=== PATIENT | male | born 1985 | race Caucasian/White ===

== ENCOUNTER 2016-07-05 12:30 | Inpatient (IN) | payer OTHER ==
[2016-07-05 14:33] VITALS: BMI 27.6
--- NOTE | 2016-07-05 15:50 | HP ---
CIWA Score - CIWA Score Nausea/Vomitin Muscle Tremors: 3 Anxiety: 3 Agitation: 2 Paroxysmal Sweats: 3 Orientation: 0-Oriented Tacttile Disturbances: 2-Mild Itch/Numbness/Burn Auditory Disturbances: 0-None Visual Disturbances: 0-None Headache: 0-None Present CIWA-Ar Total Score: 16 Admission ROS BHS - HPI Chief Complaint: I need to stop drinking and i can't do it by myself . Allergies/Adverse Reactions: Allergies Allergy/AdvReac Type Severity Reaction Status Date / Time mushroom Allergy Severe Swelling Verified 07/05/16 15:22 amoxicillin AdvReac abdominal Verified 07/05/16 15:22 pain History of Present Illness: 30 y/o m pt with a h/o chronic alcoholism seeking detox. Exam Limitations: No Limitations - Ebola screening Have you traveled outside of the country in the last 21 days: No Have you had contact with anyone from an Ebola affected area: No Have you been sick,other than usual withdrawal symptoms: No Do you have a fever: No - Review of Systems Constitutional: Malaise, Night Sweats, Changes in sleep EENT: reports: Blurred Vision, Nose Congestion Respiratory: reports: No Symptoms reported Cardiac: reports: Lightheadedness GI: reports: No Symptoms Reported, Nausea : reports: No Symptoms Reported Musculoskeletal: reports: Muscle Pain Integumentary: reports: No Symptoms Reported Neuro: reports: Tremors Endocrine: reports: No Symptoms Reported Hematology: reports: No Symptoms Reported Psychiatric: reports: Agitated, Anxious Other Systems: Reviewed and Negative Patient History - Patient Medical History Hx Anemia: No Hx Asthma: No Hx Chronic Obstructive Pulmonary Disease (COPD): No Hx Cancer: No Hx Cardiac Disorders: No Hx Congestive Heart Failure: No Hx Hypertension: No Hx Hypercholesterolemia: No Hx Pacemaker: No HX Cerebrovascular Accident: No Hx Seizures: No Hx Diabetes: No Hx Gastrointestinal Disorders: Yes (acid reflux, celiac disease ) Hx Liver Disease: No Hx Genitourinary Disorders: No Hx Sexually Transmitted Disorders: Yes (syphilis) Hx Renal Disease (ESRD): No Hx Thyroid Disease: No Hx Human Immunodeficiency Virus (HIV): No Hx Hepatitis C: No Hx Depression: No Hx Suicide Attempt: No Hx Bipolar Disorder: No Hx Schizophrenia: No Other Medical History: insomnia , h/o DT, visual halluccint[employer] 2013 admitted at [facility] - Patient Surgical History Past Surgical History: Yes Hx Neurologic Surgery: No Hx Cataract Extraction: No Hx Cardiac Surgery: No Hx Lung Surgery: No Hx Breast Surgery: No Hx Breast Biopsy: No Hx Abdominal Surgery: No Hx Appendectomy: No Hx Cholecystectomy: No Hx Genitourinary Surgery: No Hx Section: No Hx Orthopedic Surgery: Yes (dislocation, left wrist at age 20) Anesthesia Reaction: No - PPD History Previous Implant?: Yes Documented Results: Negative w/o proof Implanted On Prior [facility] Admission?: No PPD to be Administered?: Yes - Reproductive History Patient is a Female of Child Bearing Age (11 -55 yrs old): No - Smoking Cessation Smoking history: Never smoked Have you smoked in the past 12 months: No Aproximately how many cigarettes per day: 0 Cigars Per Day: 0 Hx Chewing Tobacco Use: No Initiated information on smoking cessation: No 'Breaking Loose' booklet given: 07/05/16 - Substance & Tx. History Hx Alcohol Use: Yes Hx Substance Use: No Substance Use Type: Alcohol Hx Substance Use Treatment: Yes ([facility] ) - Substances Abused Alcohol-vodka Route: Oral Frequency: Daily Amount used: 1-2 liters/d Age of first use: 19 Date of Last Use: 07/05/16 Family Disease History - Family Disease History Family Disease History: Diabetes: Father, Mother Admission Physical Exam S - Vital Signs Vital Signs: Vital Signs - 24 hr 07/05/16 14:29 Temperature 96.7 F L Pulse Rate 104 H Respiratory 18 Rate Blood Pressure 134/77 - Physical General Appearance: Yes: Appropriately Dressed, Tremorous, Irritable, Anxious HEENTM: Yes: EOMI, Hearing grossly Normal, Normocephalic, Normal Voice, REYNOLD Respiratory: Yes: Chest Non-Tender, Lungs Clear, Normal Breath Sounds, No Respiratory Distress Neck: Yes: Supple, Trachea in good position Breast: Yes: Within Normal Limits Cardiology: Yes: Regular Rhythm, Regular Rate, S1, S2 Abdominal: Yes: Non Tender, Flat, Soft, Increased Bowel Sounds Genitourinary: Yes: Frequency Back: Yes: Decreased Range of Motion Musculoskeletal: Yes: Other (well healed left wrist scar) Extremities: Yes: Tremors Neurological: Yes: night cleaner II-XII NML intact, Fully Oriented, Alert, Motor Strength 5/5, Normal Response Integumentary: Yes: Moist Lymphatic: Yes: Within Normal Limits - Diagnostic (1) Chronic alcoholism Current Visit: Yes Status: Chronic (2) Celiac disease Current Visit: Yes Status: Chronic (3) Syphilis Current Visit: Yes Status: Acute (4) Insomnia Current Visit: Yes Status: Chronic Qualifiers: Insomnia type: unspecified Qualified Code(s): G47.00 - Insomnia, unspecified Cleared for Admission [facility] - Detox or Rehab [facility] Level of Care: Medically Managed Detox Regimen/Protocol: Librium S Breath Alcohol Content Breath Alcohol Content: 0.072 Urine Drug Screen - Results Drug Screen Negative: No Urine Drug Screen Results: BZO-Benzodiazepines
[2016-07-05] MEDS ORDERED: guaiFENesin/D-METHORPHAN HB 10 ML UNIT-DOSE CUPS PO PRN (16:10)
[2016-07-05] MEDS ORDERED: hydrOXYzine PAMOATE 25 MG CAPSULE (FP) PO PRN (16:10)
[2016-07-05] MEDS ORDERED: MAGNESIUM CITRATE 300 ML BOTTLE PO PRN (16:10)
[2016-07-05] MEDS ORDERED: ACETAMINOPHEN 325 MG TABLET (FP) PO PRN (16:10)
[2016-07-05] MEDS ORDERED: MAG HYDROX/AL HYDROX/SIMETH 30 ML UNIT-DOSE CUP PO PRN (16:10)
[2016-07-05] MEDS ORDERED: P-EPHED 60MG/TRIPROLIDI 2.5MG TABLET PO PRN (16:10)
[2016-07-05] MEDS ORDERED: MENTHOL/PHENOL 1 EACH UD MM PRN (16:10)
[2016-07-05] MEDS ORDERED: MAGNESIUM HYDROX 2400MG/30ML ORAL SUSPENSION 30 ML CUP PO PRN (16:10)
[2016-07-05] MEDS: chlordiazePOXIDE HCL 25 MG CAPSULE PO SCH ×2 (17:13→22:22)
[2016-07-05] MEDS: DOXYCYCLINE HYCLATE 100 MG TABLET PO SCH (17:13)
[2016-07-05] MEDS: chlordiazePOXIDE HCL 25 MG CAPSULE PO PRN (20:20)
[2016-07-05] MEDS: THIAMINE HCL 100 MG TABLET (FP) PO SCH (22:22)
[2016-07-05] MEDS: diphenhydrAMINE HCL 50 MG CAPSULE PO PRN (22:23)
[2016-07-05] MEDS: IBUPROFEN 400 MG TABLET (FP) PO PRN (22:25)
[2016-07-05] MEDS: LOPERAMIDE HCL 2 MG CAPSULE PO PRN (23:06)
[2016-07-06] MEDS: chlordiazePOXIDE HCL 25 MG CAPSULE PO PRN (00:50)
[2016-07-06] MEDS: diphenhydrAMINE HCL 50 MG CAPSULE PO PRN (00:50)
[2016-07-06] MEDS: chlordiazePOXIDE HCL 25 MG CAPSULE PO SCH ×4 (05:49→23:02)
[2016-07-06] MEDS: LOPERAMIDE HCL 2 MG CAPSULE PO PRN (05:50)
[2016-07-06 10:08] LABS: MCH 29.6 pg (25.7-33.7); MCHC 32.9 g/dl (32.0-35.9); PLATELET COUNT 166 K/MM3 (134-434); RDW 13.3 % (11.9-15.9); WHITE BLOOD COUNT 4.4 K/mm3 (4.0-10.0)
--- NOTE | 2016-07-06 10:15 | CONSULT ---
[facility] Psychiatric Consult - Data Date of interview: 07/06/16 Admission source: [facility] Identifying data: This is 30 years old male with no psychiatric hospitalization history intoxciated with: Alcohol Substance Abuse History: - Smoking Cessation. Smoking history: Never smoked. Have you smoked in the past 12 months: No. Aproximately how many cigarettes per day: 0. Cigars Per Day: 0. Hx Chewing Tobacco Use: No. Initiated information on smoking cessation: No. 'Breaking Loose' booklet given: . - Substance & Tx. History. Hx Alcohol Use: Yes. Hx Substance Use: No. Substance Use Type: Alcohol. Hx Substance Use Treatment: Yes ([facility] ). - Substances Abused. Alcohol-vodka. Route: Oral. Frequency: Daily. Amount used: 1-2 liters/d. Age of first use: 19. Date of Last Use: 07/05/16 Medical History: Syphilis history, Celiac disease, Psychiatric History: Patient reports history of depression and anxiety, severe insomni, reports taking prior to admission: Ambien 10mg po qhs Physical/Sexual Abuse/Trauma History: Denies Additional Comment: Ambien 10mg po qhs Mental Status Exam - Mental Status Exam Alert and Oriented to: Person Cognitive Function: Fair Patient Appearance: Unkempt Mood: Sad Affect: Flat Patient Behavior: Sedated Speech Pattern: Delayed Voice Loudness: Mildly Soft/Quiet Thought Process: Circumstantial Thought Disorder: Being Controlled Hallucinations: Denies Suicidal Ideation: Denies Homicidal Ideation: Denies Insight/Judgement: Fair Sleep: Difficulty falling asleep Appetite: Weight loss Muscle strength/Tone: Mild Hypotonicity Gait/Station: Shuffling Additional Comments: Ambien 10mg po qhs Psychiatric Findings - Problem List ([place] 1, 2,3) (1) Chronic alcoholism Current Visit: Yes Status: Chronic (2) Alcohol induced insomnia Current Visit: Yes Status: Acute (3) Alcohol-induced anxiety disorder Current Visit: Yes Status: Acute (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
[2016-07-06 10:18] LABS: ALBUMIN 4.2 g/dl (3.4-5.0); ALK PHOS 105 U/L (45-117); ANION GAP 10 (8-16); BILIRUBIN,TOTAL 0.2 mg/dL (0.2-1.0); CALCIUM 8.7 mg/dL (8.5-10.1); CO2 28 mmol/L (21-32); COCKROFT - GAULT 130.47; CREATININE 0.9 mg/dL (0.7-1.3); GLUCOSE,RANDOM 83 mg/dL (74-106); SGOT/AST 82 U/L (15-37); SGPT/ALT 118 U/L (12-78); TOT PROT 7.4 g/dl (6.4-8.2)
[2016-07-06] MEDS: PRENATAL VITAMINS W/ FOLIC ACID TABLET (FP) PO SCH (10:30)
[2016-07-06] MEDS: DOXYCYCLINE HYCLATE 100 MG TABLET PO SCH ×2 (10:30→17:46)
--- NOTE | 2016-07-06 10:53 | PN ---
[facility] CIWA - CIWA Score Nausea/Vomitin (DIARRHEA) Muscle Tremors: 4-Moderate,w/Arms Extend Anxiety: 4-Mod. Anxious/Guarded Agitation: 4-Moderately Restless Paroxysmal Sweats: 1-Minimal Palms Moist Orientation: 0-Oriented Tacttile Disturbances: 3-Moderate Itch/Numb/Burn Auditory Disturbances: 0-None Visual Disturbances: 0-None Headache: 0-None Present CIWA-Ar Total Score: 19 BHS Progress Note (SOAP) Subjective: ANXIETY,SWEATS,TREMORS, DIARRHEA,FATIGUE. Objective: 07/06/16 10:52 Vital Signs Temperature 96.8 F L 07/06/16 09:28 Pulse Rate 75 07/06/16 09:28 Respiratory Rate 18 07/06/16 09:28 Blood Pressure 115/77 07/06/16 09:28 O2 Sat by Pulse Oximetry (%) Laboratory Last Values WBC 4.4 K/mm3 (4.0-10.0) 07/06/16 06:00 RBC 4.72 M/mm3 (4.00-5.60) 07/06/16 06:00 Hgb 14.0 GM/dL (11.7-16.9) 07/06/16 06:00 Hct 42.5 % (35.4-49) 07/06/16 06:00 MCV 90.0 fl (80-96) 07/06/16 06:00 MCHC 32.9 g/dl (32.0-35.9) 07/06/16 06:00 RDW 13.3 % (11.9-15.9) 07/06/16 06:00 Plt Count 166 K/MM3 (134-434) 07/06/16 06:00 MPV 10.0 fl (7.5-11.1) 07/06/16 06:00 Sodium 140 mmol/L (136-145) 07/06/16 06:00 Potassium 4.5 mmol/L (3.5-5.1) 07/06/16 06:00 Chloride 102 mmol/L (98-107) 07/06/16 06:00 Carbon Dioxide 28 mmol/L (21-32) 07/06/16 06:00 Anion Gap 10 (8-16) 07/06/16 06:00 BUN 13 mg/dL (7-18) 07/06/16 06:00 Creatinine 0.9 mg/dL (0.7-1.3) 07/06/16 06:00 Creat Clearance w eGFR > 60 (>60) 07/06/16 06:00 Random Glucose 83 mg/dL (74-106) 07/06/16 06:00 Calcium 8.7 mg/dL (8.5-10.1) 07/06/16 06:00 Total Bilirubin 0.2 mg/dL (0.2-1.0) 07/06/16 06:00 AST 82 U/L (15-37) H 07/06/16 06:00 ALT 118 U/L (12-78) H 07/06/16 06:00 Alkaline Phosphatase 105 U/L (45-117) 07/06/16 06:00 Total Protein 7.4 g/dl (6.4-8.2) 07/06/16 06:00 Albumin 4.2 g/dl (3.4-5.0) 07/06/16 06:00 Assessment: 07/06/16 10:52 WITHDRAWAL SX Plan: CONTINUE DETOX
--- NOTE | 2016-07-06 16:36 | EKG ---
Test Reason : Blood Pressure : / mmHG Vent. Rate : 100 BPM Atrial Rate : 100 BPM P-R Int : 134 ms QRS Dur : 086 ms QT Int : 346 ms P-R-T Axes : 036 015 014 degrees QTc Int : 446 ms NORMAL SINUS RHYTHM NORMAL ECG NO PREVIOUS ECGS AVAILABLE Confirmed by MAGGY OSULLIVAN MD ([id number]) on 07/06/2016 4:36:26 PM Referred By: Confirmed By:MAGGY OSULLIVAN MD
[2016-07-06 17:46] LABS: URINE APPEARANCE CLEAR; URINE BILIRUBIN NEGATIVE (NEGATIVE); URINE BLOOD NEGATIVE (NEGATIVE); URINE COLOR COLORLESS; URINE GLUCOSE (UA) NEGATIVE (NEGATIVE); URINE KETONE NEGATIVE (NEGATIVE); URINE LEUK ESTERASE NEGATIVE (NEGATIVE); URINE NITRITE NEGATIVE (NEGATIVE); URINE PROTEIN NEGATIVE (NEGATIVE); URINE UROBILINOGEN NEGATIVE E.U./dl (0.2-1.0)
[2016-07-06] MEDS ORDERED: ZOLPIDEM TARTRATE 10 MG TABLET (PARK CARE ONLY) PO PRN (22:00)
[2016-07-06] MEDS: THIAMINE HCL 100 MG TABLET (FP) PO SCH (23:02)
[2016-07-06] MEDS: IBUPROFEN 400 MG TABLET (FP) PO PRN (23:04)
[2016-07-07] MEDS: chlordiazePOXIDE HCL 25 MG CAPSULE PO SCH ×2 (05:27→10:29)
[2016-07-07] MEDS: PRENATAL VITAMINS W/ FOLIC ACID TABLET (FP) PO SCH (10:29)
[2016-07-07] MEDS: DOXYCYCLINE HYCLATE 100 MG TABLET PO SCH (10:29)
[2016-07-07 10:57] VITALS: BP 130/91; PULSE 71; TEMP 98.6
--- NOTE | 2016-07-07 11:40 | PN ---
[facility] CIWA - CIWA Score Nausea/Vomitin-No Nausea/No Vomiting Muscle Tremors: 4-Moderate,w/Arms Extend Anxiety: 4-Mod. Anxious/Guarded Agitation: 4-Moderately Restless Paroxysmal Sweats: 1-Minimal Palms Moist Orientation: 0-Oriented Tacttile Disturbances: 3-Moderate Itch/Numb/Burn Auditory Disturbances: 0-None Visual Disturbances: 0-None Headache: 0-None Present CIWA-Ar Total Score: 16 S Progress Note (SOAP) Subjective: ANXIETY,IRRITABILITY, INTERMITTENT SLEEP. C/O ANAL DISCOMFORT AND CHRONIC HX OF BLEEDING WHEN WIPE AFTER BM. ON OINTMENT BY HIS PMD PER PATIENT. PT ADMITS HE DID NOT MENTION SX ON ADMISSION. Objective: 07/07/16 11:39 Vital Signs Temperature 98.6 F 07/07/16 10:56 Pulse Rate 71 07/07/16 10:56 Respiratory Rate 18 07/07/16 10:56 Blood Pressure 130/91 07/07/16 10:56 O2 Sat by Pulse Oximetry (%) Laboratory Last Values WBC 4.4 K/mm3 (4.0-10.0) 07/06/16 06:00 RBC 4.72 M/mm3 (4.00-5.60) 07/06/16 06:00 Hgb 14.0 GM/dL (11.7-16.9) 07/06/16 06:00 Hct 42.5 % (35.4-49) 07/06/16 06:00 MCV 90.0 fl (80-96) 07/06/16 06:00 MCHC 32.9 g/dl (32.0-35.9) 07/06/16 06:00 RDW 13.3 % (11.9-15.9) 07/06/16 06:00 Plt Count 166 K/MM3 (134-434) 07/06/16 06:00 MPV 10.0 fl (7.5-11.1) 07/06/16 06:00 Sodium 140 mmol/L (136-145) 07/06/16 06:00 Potassium 4.5 mmol/L (3.5-5.1) 07/06/16 06:00 Chloride 102 mmol/L (98-107) 07/06/16 06:00 Carbon Dioxide 28 mmol/L (21-32) 07/06/16 06:00 Anion Gap 10 (8-16) 07/06/16 06:00 BUN 13 mg/dL (7-18) 07/06/16 06:00 Creatinine 0.9 mg/dL (0.7-1.3) 07/06/16 06:00 Creat Clearance w eGFR > 60 (>60) 07/06/16 06:00 Random Glucose 83 mg/dL (74-106) 07/06/16 06:00 Calcium 8.7 mg/dL (8.5-10.1) 07/06/16 06:00 Total Bilirubin 0.2 mg/dL (0.2-1.0) 07/06/16 06:00 AST 82 U/L (15-37) H 07/06/16 06:00 ALT 118 U/L (12-78) H 07/06/16 06:00 Alkaline Phosphatase 105 U/L (45-117) 07/06/16 06:00 Total Protein 7.4 g/dl (6.4-8.2) 07/06/16 06:00 Albumin 4.2 g/dl (3.4-5.0) 07/06/16 06:00 Urine Color Colorless 07/06/16 17:31 Urine Appearance Clear 07/06/16 17:31 Urine pH 8.0 (5.0-8.0) 07/06/16 17:31 Ur Specific [place] 1.015 (1.005-1.025) 07/06/16 17:31 Urine Protein Negative (NEGATIVE) 07/06/16 17:31 Urine Glucose (UA) Negative (NEGATIVE) 07/06/16 17:31 Urine Ketones Negative (NEGATIVE) 07/06/16 17:31 Urine Blood Negative (NEGATIVE) 07/06/16 17:31 Urine Nitrite Negative (NEGATIVE) 07/06/16 17:31 Urine Bilirubin Negative (NEGATIVE) 07/06/16 17:31 Urine Urobilinogen Negative E.U./dl (0.2-1.0) 07/06/16 17:31 Ur Leukocyte Esterase Negative (NEGATIVE) 07/06/16 17:31 RPR Titer Reactive 1:2 (NONREACTIVE) H 07/06/16 06:00 T.pallidum Ab (MHA) Reactive (NONREACTIVE) 07/06/16 06:00 LABS NOTED PT HAS A HX OF SYPHILIS AND BEING TREATED WITH DOXYCYCLINE WHILE AT [facility]. ALSO STATES PREVIOUS ANAL SX FOR REMOVAL OF LESIONS. Assessment: 07/07/16 11:39 WITHDRAWAL SX Plan: CONTINUE DETOX [facility] OINTMENT DIRECTED
[2016-07-07] MEDS ORDERED: HYDROCORTISONE 2.5% TOPICAL CREAM 30 GM TUBE TP SCH (13:15)
--- NOTE | 2016-07-07 14:43 | DS ---
[facility] Detox Discharge Summary Admission Date: 07/05/16 Discharge Date: 07/07/16 - History Present History: Alcohol Dependence Additional Comments: PT DECLINED TO COMPLETE DETOX STATING HE DOES NOT NEED ANYMORE LIBRIUM. AND THAT HE FEELS FINE. ALERT O X 3. NAD. PT HAS PRIMARY CARE IN [place] AND PT INSTRUCTED TO F/U WITH HIS PMD FOR HIS COMORBID CONDITIONS. Pertinent Past History: CELIAC DISEASE ACUTE SYPHILIS TREATMENT - Physical Exam Results Vital Signs: Vital Signs Temperature 98.6 F 07/07/16 10:56 Pulse Rate 71 07/07/16 10:56 Respiratory Rate 18 07/07/16 10:56 Blood Pressure 130/91 07/07/16 10:56 O2 Sat by Pulse Oximetry (%) Pertinent Admission Physical Exam Findings: WITHDRAWAL SX - Treatment Hospital Course: Discharged Condition Good Patient has Accepted a Rehab Referral to: REFUSED - Medication Discharge Medications: Ambulatory Orders Zolpidem Tartrate [Ambien] 10 mg PO HS 07/05/16 Zolpidem Tartrate [Ambien] 10 mg PO HS #14 tablet MDD 10 07/06/16 Doxycycline Hyclate [Vibramycin -] 100 mg PO BID #14 cap 07/07/16 - Diagnosis (1) Alcohol induced insomnia Status: Acute (2) Syphilis Status: Acute (3) Celiac disease Status: Chronic (4) Alcohol dependence with uncomplicated withdrawal Status: Acute (5) Alcohol-induced anxiety disorder Status: Acute (6) 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
[2016-07-07] MEDS ORDERED: chlordiazePOXIDE 5 MG CAPSULE PO SCH (17:00)
[2016-07-07] MEDS ORDERED: DOXYCYCLINE HYCLATE 100 MG TABLET PO SCH (18:00)
[2016-07-08] MEDS ORDERED: chlordiazePOXIDE HCL 10 MG CAPSULE PO SCH (17:00)
== END 2016-07-07 14:24 | disposition left against medical advice (07) | DRG 770 ==
LOC: YASAS 12:30 → Y3N 15:52
PROVIDERS: ADMIT Internal Medicine; ATTEND Internal Medicine
PROC: HZ2ZZZZ Detoxification Services for Substance Abuse Treatment (ICD-10-PCS; principal; 2016-07-07)
DX: F10.230 Alcohol dependence with withdrawal, uncomplicated (principal); F10.24 Alcohol dependence with alcohol-induced mood disorder; F10.282 Alcohol dependence with alcohol-induced sleep disorder; G47.00 Insomnia, unspecified; K21.9 Gastro-esophageal reflux disease without esophagitis; K90.0 Celiac disease; Z20.2 Contact with and (suspected) exposure to infections with a predominantly sexual mode of transmission
CPT/HCPCS: 36415; 80053; 81003; 85027; 86593; 86780; 93005; 93010

== ENCOUNTER 2017-04-29 14:22 | Inpatient (IN) | payer OTHER ==
[2017-04-29 15:00] VITALS: BMI 28.7
--- NOTE | 2017-04-29 17:11 | HP ---
CIWA Score - CIWA Score Nausea/Vomitin Muscle Tremors: 4-Moderate,w/Arms Extend Anxiety: 3 Agitation: 3 Paroxysmal Sweats: 3 Orientation: 1-Uncertain about Date Tacttile Disturbances: 0-None Auditory Disturbances: 0-None Visual Disturbances: 0-None Headache: 1-Very Mild CIWA-Ar Total Score: 18 Admission ROS BHS - HPI Chief Complaint: "They didn't have detox at the hospital I was at" Allergies/Adverse Reactions: Allergies Allergy/AdvReac Type Severity Reaction Status Date / Time mushroom Allergy Severe Swelling Verified 04/29/17 15:31 amoxicillin AdvReac abdominal Verified 04/29/17 15:31 pain History of Present Illness: 31 y/o male with about 12 year history of alcohol intoxification presents here today requesting detox from alcohol. pt states he was brought in from another hospital, states he does not remember how he got to the other yesterday, states he is coming out of a 3 day blackout as a result of drinking. Pt states he had been sober from [place] to about 1 wk ago, and then another 6 months in 2014. Hx of celiac dx, insomnia. - Ebola screening Have you traveled outside of the country in the last 21 days: No (N) Have you had contact with anyone from an Ebola affected area: No Have you been sick,other than usual withdrawal symptoms: No Do you have a fever: No Patient History - Patient Medical History Hx Anemia: No Hx Asthma: No Hx Chronic Obstructive Pulmonary Disease (COPD): No Hx Cancer: No Hx Cardiac Disorders: No Hx Congestive Heart Failure: No Hx Hypertension: No Hx Hypercholesterolemia: No Hx Pacemaker: No HX Cerebrovascular Accident: No Hx Seizures: Yes (Alcohol induced) Hx Dementia: No Hx Diabetes: No Hx Gastrointestinal Disorders: Yes (acid reflux, celiac disease ) Hx Liver Disease: No Hx Genitourinary Disorders: No Hx Sexually Transmitted Disorders: Yes (syphilis) Hx Renal Disease (ESRD): No Hx Thyroid Disease: No Hx Human Immunodeficiency Virus (HIV): No (last tested 03/2017) Hx Hepatitis C: Yes (Recently diagnosed, to start tx) Hx Depression: No Hx Suicide Attempt: No (denies current idea/attempt) Hx Bipolar Disorder: No Hx Schizophrenia: No - Patient Surgical History Past Surgical History: Yes Hx Neurologic Surgery: No Hx Cataract Extraction: No Hx Cardiac Surgery: No Hx Lung Surgery: No Hx Breast Surgery: No Hx Breast Biopsy: No Hx Abdominal Surgery: No Hx Appendectomy: No Hx Cholecystectomy: No Hx Genitourinary Surgery: No Hx Section: No Hx Orthopedic Surgery: Yes (dislocation, left wrist at age 20) Hx Hysterectomy: No Anesthesia Reaction: No - PPD History Previous Implant?: Yes Documented Results: Negative w/o proof Date: 07/07/16 PPD to be Administered?: No - Reproductive History Patient is a Female of Child Bearing Age (11 -55 yrs old): No - Smoking Cessation Smoking history: Never smoked Have you smoked in the past 12 months: No Aproximately how many cigarettes per day: 0 Cigars Per Day: 0 Hx Chewing Tobacco Use: No Initiated information on smoking cessation: Yes 'Breaking Loose' booklet given: 04/29/17 - Substance & Tx. History Hx Alcohol Use: Yes Substance Use Type: Alcohol - Substances Abused Alcohol Route: Oral Frequency: Daily Amount used: LIQUOR- 1-2 litre (Vodka) Age of first use: 19 Date of Last Use: 04/29/17 Family Disease History - Family Disease History Family Disease History: Diabetes: Father, Mother (Skin Ca), Other: Mother Admission Physical Exam [facility] - Vital Signs Vital Signs: Vital Signs - 24 hr 04/29/17 14:59 Temperature 97.5 F L Pulse Rate 106 H Respiratory 18 Rate Blood Pressure 141/73 - Physical General Appearance: Yes: Moderate Distress, Alcohol on Breath, Intoxicated HEENTM: Yes: Within Normal Limits Respiratory: Yes: Chest Non-Tender, Lungs Clear, Normal Breath Sounds Neck: Yes: No masses,lesions,Nodules Breast: Yes: Breast Exam Deferred Cardiology: Yes: Tachycardia Abdominal: Yes: Normal Bowel Sounds Back: Yes: Normal Inspection Musculoskeletal: Yes: full range of Motion, Gait Steady Extremities: Yes: Within Normal Limits, Normal Range of Motion Neurological: Yes: Alert, Disoriented (A & O to name, place) Lymphatic: Yes: Within Normal Limits - Diagnostic (1) Alcohol dependence with uncomplicated withdrawal Current Visit: No Status: Acute (2) Marijuana dependence Current Visit: Yes Status: Acute (3) Syphilis Current Visit: No Status: Acute (4) Celiac disease Current Visit: No Status: Chronic (5) Insomnia Current Visit: No Status: Chronic Qualifiers: Insomnia type: unspecified Qualified Code(s): G47.00 - Insomnia, unspecified (6) History of secondary syphilis of skin Current Visit: Yes Status: Resolved Cleared for Admission [facility] - Detox or Rehab [facility] Level of Care: Medically Managed Detox Regimen/Protocol: Librium [facility] Breath Alcohol Content Breath Alcohol Content: 0.170 Urine Drug Screen - Results Drug Screen Negative: No Urine Drug Screen Results: THC-Marijuana, BZO-Benzodiazepines
[2017-04-29] MEDS ORDERED: P-EPHED 60MG/TRIPROLIDI 2.5MG TABLET PO PRN (17:28)
[2017-04-29] MEDS ORDERED: guaiFENesin/D-METHORPHAN HB 10 ML UNIT-DOSE CUPS PO PRN (17:28)
[2017-04-29] MEDS ORDERED: MAG HYDROX/AL HYDROX/SIMETH 30 ML UNIT-DOSE CUP PO PRN (17:28)
[2017-04-29] MEDS ORDERED: MELATONIN 5 MG TABLETS PO PRN (17:28)
[2017-04-29] MEDS ORDERED: MAGNESIUM HYDROX 2400MG/30ML ORAL SUSPENSION 30 ML CUP PO PRN (17:28)
[2017-04-29] MEDS ORDERED: LOPERAMIDE HCL 2 MG CAPSULE PO PRN (17:28)
[2017-04-29] MEDS ORDERED: ACETAMINOPHEN 325 MG TABLET (FP) PO PRN (17:28)
[2017-04-29] MEDS ORDERED: MENTHOL/PHENOL 1 EACH UD MM PRN (17:28)
[2017-04-29] MEDS ORDERED: MAGNESIUM CITRATE 300 ML BOTTLE PO PRN (17:28)
[2017-04-29] MEDS: chlordiazePOXIDE HCL 25 MG CAPSULE PO SCH ×2 (18:59→22:12)
[2017-04-29] MEDS: IBUPROFEN 400 MG TABLET (FP) PO PRN (19:59)
[2017-04-29] MEDS: BACITRACIN 0.9 GM PACKET TP SCH (22:12)
[2017-04-29] MEDS: THIAMINE HCL 100 MG TABLET (FP) PO SCH (22:12)
[2017-04-30 00:45] LABS: URINE APPEARANCE CLEAR; URINE BILIRUBIN NEGATIVE (<2.0 mg/dL); URINE BLOOD NEGATIVE (NEGATIVE); URINE COLOR YELLOW; URINE GLUCOSE (UA) NEGATIVE (NEGATIVE); URINE KETONE NEGATIVE (NEGATIVE); URINE LEUK ESTERASE NEGATIVE (NEGATIVE); URINE NITRITE NEGATIVE (NEGATIVE); URINE PROTEIN NEGATIVE (NEGATIVE); URINE UROBILINOGEN NEGATIVE mg/dL (0.2-1.0)
[2017-04-30] MEDS: chlordiazePOXIDE HCL 25 MG CAPSULE PO SCH ×4 (05:12→22:15)
[2017-04-30] MEDS: IBUPROFEN 400 MG TABLET (FP) PO PRN (05:14)
--- NOTE | 2017-04-30 09:07 | EKG ---
Test Reason : Blood Pressure : / mmHG Vent. Rate : 100 BPM Atrial Rate : 100 BPM P-R Int : 128 ms QRS Dur : 078 ms QT Int : 320 ms P-R-T Axes : 040 013 022 degrees QTc Int : 412 ms NORMAL SINUS RHYTHM NORMAL ECG WHEN COMPARED WITH ECG OF 05-JUL-2016 15:55, NO SIGNIFICANT CHANGE WAS FOUND Confirmed by PHAM FLOWERS MD ([id number]) on 04/30/2017 9:06:57 AM Referred By: Confirmed By:PHAM FLOWERS MD
--- NOTE | 2017-04-30 09:18 | PN ---
S CIWA - CIWA Score Nausea/Vomitin Muscle Tremors: 3 Anxiety: 3 Agitation: 3 Paroxysmal Sweats: 1-Minimal Palms Moist Orientation: 0-Oriented Tacttile Disturbances: 1-Very Mild Itch/Numbness Auditory Disturbances: 1-Very Mild Visual Disturbances: 0-None Headache: 2-Mild CIWA-Ar Total Score: 17 BHS Progress Note (SOAP) Subjective: ALERT,IRRITABLE,ANXIOUS,INTERRUPTED SLEEP,,PAIN IN THE BODY AND BACK,TREMOR Objective: 04/30/17 09:15 Vital Signs Temperature 97.5 F L 04/30/17 06:33 Pulse Rate 67 04/30/17 06:33 Respiratory Rate 18 04/30/17 06:33 Blood Pressure 125/71 04/30/17 06:33 O2 Sat by Pulse Oximetry (%) EKG LOW VOLTAGE,NSR 04/30/17 09:16 Laboratory Last Values Urine Color Yellow 04/29/17 21:22 Urine Appearance Clear 04/29/17 21:22 Urine pH 6.0 (5.0-8.0) D 04/29/17 21:22 Ur Specific [place] 1.019 (1.001-1.035) 04/29/17 21:22 Urine Protein Negative (NEGATIVE) 04/29/17 21:22 Urine Glucose (UA) Negative (NEGATIVE) 04/29/17 21:22 Urine Ketones Negative (NEGATIVE) 04/29/17 21:22 Urine Blood Negative (NEGATIVE) 04/29/17 21:22 Urine Nitrite Negative (NEGATIVE) 04/29/17 21:22 Urine Bilirubin Negative (<2.0 mg/dL) 04/29/17 21:22 Urine Urobilinogen Negative mg/dL (0.2-1.0) 04/29/17 21:22 Ur Leukocyte Esterase Negative (NEGATIVE) 04/29/17 21:22 04/30/17 09:17 LABS PENDING Assessment: 04/30/17 09:17 WITHDRAWAL SYMPTOM Plan: CONTINUE DETOX
[2017-04-30 10:10] LABS: HEMATOCRIT 36.8 % (35.4-49); HEMOGLOBIN 12.5 GM/dL (11.7-16.9); MCH 29.6 pg (25.7-33.7); MEAN CELL VOLUME 87.1 fl (80-96); MEAN PLT VOLUME 8.7 fl (7.5-11.1); PLATELET COUNT 152 K/MM3 (134-434); RBC 4.22 M/mm3 (4.00-5.60); RDW 13.3 % (11.9-15.9); WHITE BLOOD COUNT 4.6 K/mm3 (4.0-10.0)
[2017-04-30 10:33] LABS: ALBUMIN 3.6 g/dl (3.4-5.0); ANION GAP 6 (8-16); BLOOD UREA NITROGEN 20 mg/dL (7-18); CALCIUM 8.4 mg/dL (8.5-10.1); CHLORIDE 103 mmol/L (98-107); CO2 31 mmol/L (21-32); CREATININE 0.8 mg/dL (0.7-1.3); GLUCOSE,RANDOM 87 mg/dL (74-106); POTASSIUM 3.6 mmol/L (3.5-5.1); SGOT/AST 31 U/L (15-37); SGPT/ALT 60 U/L (12-78); SODIUM 140 mmol/L (136-145)
[2017-04-30 10:35] LABS: ALK PHOS 56 U/L (45-117); BILIRUBIN,TOTAL 0.2 mg/dL (0.2-1.0); TOT PROT 5.8 g/dl (6.4-8.2)
[2017-04-30] MEDS: PRENATAL VITAMINS W/ FOLIC ACID TABLET (FP) PO SCH (10:38)
[2017-04-30] MEDS: BACITRACIN 0.9 GM PACKET TP SCH ×2 (10:39→22:16)
[2017-04-30] MEDS ORDERED: BACITRACIN 0.9 GM PACKET ONE (10:39)
--- NOTE | 2017-04-30 11:27 | CONSULT ---
[facility] Psychiatric Consult - Data Date of interview: 04/30/17 Admission source: [facility] Identifying data: This is 31 years old male with no psychiatric hospitalization history, single, living alone, on PA, unemployed, is chronic alcoholic requests detox protocol due to intoxication with Alcohol again. Patient denies psychiatric hospitalization history. Substance Abuse History: Smoking history: Never smoked. Have you smoked in the past 12 months: No. Aproximately how many cigarettes per day: 0. Cigars Per Day: 0. Hx Chewing Tobacco Use: No. Initiated information on smoking cessation : Yes. 'Breaking Loose' booklet given: 04/29/17. - Substance & Tx. History. Hx Alcohol Use: Yes. Substance Use Type: Alcohol. - Substances Abused. Alcohol. Route: Oral. Frequency: Daily. Amount used: LIQUOR- 1-2 litre (Vodka ). Age of first use: 19. Date of Last Use: 04/29/17 Medical History: Patient reporets history of Syphilis, Celiac Disease, Psychiatric History: Jorge cochran history of depression and aanxiety, insomnia as well, reports taking prior to admission: Alcohol, Cannabis and Benzodiazepins. Reports taking prior to admission: Remeron 30mg po qhs. Ambien 10mg po qhs Physical/Sexual Abuse/Trauma History: Denies Additional Comment: Remeron 30mg po qhs. Ambien 10mg po qhs Mental Status Exam - Mental Status Exam Alert and Oriented to: Person Cognitive Function: Fair Patient Appearance: Unkempt Mood: Sad Affect: Flat Patient Behavior: Sedated Speech Pattern: Delayed Voice Loudness: Mildly Soft/Quiet Thought Process: Circumstantial Thought Disorder: Being Controlled Hallucinations: Denies Suicidal Ideation: Denies Homicidal Ideation: Denies Insight/Judgement: Fair Sleep: Difficulty falling asleep Appetite: Weight loss Muscle strength/Tone: Mild Hypotonicity Gait/Station: Shuffling Additional Comments: Remeron 30mg po qhs. 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 Ambien 10mg po qhs
[2017-04-30 12:25] LABS: RPR REACTIVE 1:1 (NONREACTIVE)
[2017-04-30 12:27] LABS: TREPONEMA ANTIBODY PREVIOUSLY REACTIVE (NONREACTIVE)
[2017-04-30] MEDS: chlordiazePOXIDE HCL 25 MG CAPSULE PO PRN (13:24)
[2017-04-30] MEDS: THIAMINE HCL 100 MG TABLET (FP) PO SCH (22:15)
[2017-04-30] MEDS: ZOLPIDEM TARTRATE 10 MG TABLET (PARK CARE ONLY) PO PRN (22:16)
[2017-05-01] MEDS: chlordiazePOXIDE HCL 25 MG CAPSULE PO PRN ×2 (02:08→12:32)
[2017-05-01] MEDS: chlordiazePOXIDE HCL 25 MG CAPSULE PO SCH ×2 (05:51→10:18)
[2017-05-01] MEDS: PRENATAL VITAMINS W/ FOLIC ACID TABLET (FP) PO SCH (10:17)
[2017-05-01] MEDS: BACITRACIN 0.9 GM PACKET TP SCH ×2 (10:17→22:13)
--- NOTE | 2017-05-01 10:41 | PN ---
S CIWA - CIWA Score Nausea/Vomitin Muscle Tremors: 3 Anxiety: 3 Agitation: 2 Paroxysmal Sweats: 1-Minimal Palms Moist Orientation: 0-Oriented Tacttile Disturbances: 1-Very Mild Itch/Numbness Auditory Disturbances: 1-Very Mild Visual Disturbances: 0-None Headache: 2-Mild CIWA-Ar Total Score: 16 BHS Progress Note (SOAP) Subjective: ALERT,IRRITABLE,ANXIOUS,INTERRUPTED SLEEP,TREMOR Objective: 05/01/17 10:40 Vital Signs Temperature 97.5 F L 05/01/17 09:47 Pulse Rate 70 05/01/17 09:47 Respiratory Rate 20 05/01/17 09:47 Blood Pressure 107/80 05/01/17 09:47 O2 Sat by Pulse Oximetry (%) Laboratory Last Values WBC 4.6 K/mm3 (4.0-10.0) 04/30/17 07:00 RBC 4.22 M/mm3 (4.00-5.60) 04/30/17 07:00 Hgb 12.5 GM/dL (11.7-16.9) D 04/30/17 07:00 Hct 36.8 % (35.4-49) 04/30/17 07:00 MCV 87.1 fl (80-96) 04/30/17 07:00 MCH 29.6 pg (25.7-33.7) 04/30/17 07:00 MCHC 34.0 g/dl (32.0-35.9) 04/30/17 07:00 RDW 13.3 % (11.9-15.9) 04/30/17 07:00 Plt Count 152 K/MM3 (134-434) 04/30/17 07:00 MPV 8.7 fl (7.5-11.1) D 04/30/17 07:00 Sodium 140 mmol/L (136-145) 04/30/17 07:00 Potassium 3.6 mmol/L (3.5-5.1) 04/30/17 07:00 Chloride 103 mmol/L (98-107) 04/30/17 07:00 Carbon Dioxide 31 mmol/L (21-32) 04/30/17 07:00 Anion Gap 6 (8-16) L 04/30/17 07:00 BUN 20 mg/dL (7-18) H D 04/30/17 07:00 Creatinine 0.8 mg/dL (0.7-1.3) 04/30/17 07:00 Creat Clearance w eGFR > 60 (>60) 04/30/17 07:00 Random Glucose 87 mg/dL (74-106) 04/30/17 07:00 Calcium 8.4 mg/dL (8.5-10.1) L 04/30/17 07:00 Total Bilirubin 0.2 mg/dL (0.2-1.0) 04/30/17 07:00 AST 31 U/L (15-37) D 04/30/17 07:00 ALT 60 U/L (12-78) D 04/30/17 07:00 Alkaline Phosphatase 56 U/L (45-117) D 04/30/17 07:00 Total Protein 5.8 g/dl (6.4-8.2) L D 04/30/17 07:00 Albumin 3.6 g/dl (3.4-5.0) 04/30/17 07:00 Urine Color Yellow 04/29/17 21:22 Urine Appearance Clear 04/29/17 21:22 Urine pH 6.0 (5.0-8.0) D 04/29/17 21:22 Ur Specific [place] 1.019 (1.001-1.035) 04/29/17 21:22 Urine Protein Negative (NEGATIVE) 04/29/17 21: Urine Glucose (UA) Negative (NEGATIVE) 04/29/17 21:22 Urine Ketones Negative (NEGATIVE) 04/29/17 21: Urine Blood Negative (NEGATIVE) 04/29/17 21: Urine Nitrite Negative (NEGATIVE) 04/29/17 21:22 Urine Bilirubin Negative (<2.0 mg/dL) 04/29/17 21: Urine Urobilinogen Negative mg/dL (0.2-1.0) 04/29/17 21:22 Ur Leukocyte Esterase Negative (NEGATIVE) 04/29/17 21:22 RPR Titer Reactive 1:1 (NONREACTIVE) H D 04/30/17 07:00 T.pallidum Ab (MHA) Previously reactive (NONREACTIVE) 04/30/17 07:00 HIV 1&2 Antibody Screen Negative 04/30/17 07:00 HIV P24 Antigen Negative 04/30/17 07:00 PREVIOUSLY TREATED WITH SYPHILIS Assessment: 05/01/17 10:41 WITHDRAWAL SYMPTOM Plan: CONTINUE DETOX
[2017-05-01] MEDS: chlordiazePOXIDE 5 MG CAPSULE PO SCH ×2 (17:55→22:11)
[2017-05-01] MEDS: IBUPROFEN 400 MG TABLET (FP) PO PRN (18:15)
[2017-05-01] MEDS: ZOLPIDEM TARTRATE 10 MG TABLET (PARK CARE ONLY) PO PRN (22:11)
[2017-05-01] MEDS: THIAMINE HCL 100 MG TABLET (FP) PO SCH (22:11)
[2017-05-02] MEDS: chlordiazePOXIDE 5 MG CAPSULE PO SCH ×2 (05:36→10:33)
--- NOTE | 2017-05-02 09:49 | PN ---
S Progress Note (SOAP) Subjective: ALERT,IRRITABLE,INTERRUPTED SLEEP Objective: 05/02/17 09:48 Vital Signs Temperature 97.2 F L 05/02/17 06:29 Pulse Rate 67 05/02/17 06:29 Respiratory Rate 16 05/02/17 06:29 Blood Pressure 110/56 05/02/17 06:29 O2 Sat by Pulse Oximetry (%) Assessment: 05/02/17 09:48 WITHDRAWAL SYMPTOM Plan: CONTINUE DETOX,DISCHARGE IN AM
[2017-05-02] MEDS: PRENATAL VITAMINS W/ FOLIC ACID TABLET (FP) PO SCH (10:33)
[2017-05-02] MEDS: IBUPROFEN 400 MG TABLET (FP) PO PRN (10:34)
[2017-05-02] MEDS: BACITRACIN 0.9 GM PACKET TP SCH ×2 (10:37→22:23)
[2017-05-02] MEDS: chlordiazePOXIDE HCL 10 MG CAPSULE PO SCH ×2 (17:51→22:20)
[2017-05-02] MEDS: THIAMINE HCL 100 MG TABLET (FP) PO SCH (22:20)
[2017-05-02] MEDS: ZOLPIDEM TARTRATE 10 MG TABLET (PARK CARE ONLY) PO PRN (22:22)
[2017-05-03 06:12] VITALS: BP 137/74; PULSE 73; TEMP 98.1
[2017-05-03] MEDS: chlordiazePOXIDE HCL 10 MG CAPSULE PO SCH (06:12)
--- NOTE | 2017-05-03 09:44 | PN ---
S Progress Note (SOAP) Subjective: ALERT,NO COMPLAINT Objective: 05/03/17 09:42 Vital Signs Temperature 98.1 F 05/03/17 06:00 Pulse Rate 73 05/03/17 06:00 Respiratory Rate 18 05/03/17 06:00 Blood Pressure 137/74 05/03/17 06:00 O2 Sat by Pulse Oximetry (%) Assessment: 05/03/17 09:43 DETOX COMPLETED,NO WITHDRAWAL SYMPTOM Plan: DISCHARGE TODAY,FOLLOW UP WITH AFTER CARE PROGRAM ARRANGEMENT
--- NOTE | 2017-05-03 09:48 | DS ---
[facility] Detox Discharge Summary Admission Date: 04/29/17 Discharge Date: 05/03/17 - History Present History: Alcohol Dependence, Cocaine Dependence Additional Comments: FOLLOW UP WITH AFTER CARE PROGRAM ARRANGEMENT Pertinent Past History: HISTORY OF SYPHILIS INSOMNIA CELIAC DISEASE - Physical Exam Results Vital Signs: Vital Signs Temperature 98.1 F 05/03/17 06:00 Pulse Rate 73 05/03/17 06:00 Respiratory Rate 18 05/03/17 06:00 Blood Pressure 137/74 05/03/17 06:00 O2 Sat by Pulse Oximetry (%) Pertinent Admission Physical Exam Findings: WITHDRAWAL SIGNS AND SYMPTOM Vital Signs Temperature 98.1 F 05/03/17 06:00 Pulse Rate 73 05/03/17 06:00 Respiratory Rate 18 05/03/17 06:00 Blood Pressure 137/74 05/03/17 06:00 O2 Sat by Pulse Oximetry (%) Laboratory Last Values WBC 4.6 K/mm3 (4.0-10.0) 04/30/17 07:00 RBC 4.22 M/mm3 (4.00-5.60) 04/30/17 07:00 Hgb 12.5 GM/dL (11.7-16.9) D 04/30/17 07:00 Hct 36.8 % (35.4-49) 04/30/17 07:00 MCV 87.1 fl (80-96) 04/30/17 07:00 MCH 29.6 pg (25.7-33.7) 04/30/17 07:00 MCHC 34.0 g/dl (32.0-35.9) 04/30/17 07:00 RDW 13.3 % (11.9-15.9) 04/30/17 07:00 Plt Count 152 K/MM3 (134-434) 04/30/17 07:00 MPV 8.7 fl (7.5-11.1) D 04/30/17 07:00 Sodium 140 mmol/L (136-145) 04/30/17 07:00 Potassium 3.6 mmol/L (3.5-5.1) 04/30/17 07:00 Chloride 103 mmol/L (98-107) 04/30/17 07:00 Carbon Dioxide 31 mmol/L (21-32) 04/30/17 07:00 Anion Gap 6 (8-16) L 04/30/17 07:00 BUN 20 mg/dL (7-18) H D 04/30/17 07:00 Creatinine 0.8 mg/dL (0.7-1.3) 04/30/17 07:00 Creat Clearance w eGFR > 60 (>60) 04/30/17 07:00 Random Glucose 87 mg/dL (74-106) 04/30/17 07:00 Calcium 8.4 mg/dL (8.5-10.1) L 04/30/17 07:00 Total Bilirubin 0.2 mg/dL (0.2-1.0) 04/30/17 07:00 AST 31 U/L (15-37) D 04/30/17 07:00 ALT 60 U/L (12-78) D 04/30/17 07:00 Alkaline Phosphatase 56 U/L (45-117) D 04/30/17 07:00 Total Protein 5.8 g/dl (6.4-8.2) L D 04/30/17 07:00 Albumin 3.6 g/dl (3.4-5.0) 04/30/17 07:00 Urine Color Yellow 04/29/17 21:22 Urine Appearance Clear 04/29/17 21: Urine pH 6.0 (5.0-8.0) D 04/29/17 21:22 Ur Specific [place] 1.019 (1.001-1.035) 04/29/17 21:22 Urine Protein Negative (NEGATIVE) 04/29/17 21:22 Urine Glucose (UA) Negative (NEGATIVE) 04/29/17 21:22 Urine Ketones Negative (NEGATIVE) 04/29/17 21:22 Urine Blood Negative (NEGATIVE) 04/29/17 21:22 Urine Nitrite Negative (NEGATIVE) 04/29/17 21: Urine Bilirubin Negative (<2.0 mg/dL) 04/29/17 21: Urine Urobilinogen Negative mg/dL (0.2-1.0) 04/29/17 21:22 Ur Leukocyte Esterase Negative (NEGATIVE) 04/29/17 21:22 RPR Titer Reactive 1:1 (NONREACTIVE) H D 04/30/17 07:00 T.pallidum Ab (MHA) Previously reactive (NONREACTIVE) 04/30/17 07:00 HIV 1&2 Antibody Screen Negative 04/30/17 07:00 HIV P24 Antigen Negative 04/30/17 07:00 - Treatment Hospital Course: Detox Protocol Followed, Detoxed Safely, Responded well, Discharged Condition Good Patient has Accepted a Rehab Referral to: DECLINED - Medication Discharge Medications: Ambulatory Orders Zolpidem Tartrate [Ambien] 10 mg PO HS #14 tablet MDD 10 07/06/16 Doxycycline Hyclate [Vibramycin -] 100 mg PO BID #14 cap 07/07/16 Mirtazapine [Remeron -] 30 mg PO DAILY 04/29/17 Bacitracin - [Bacitracin Topical Ointment -] 1 applic TP BID #1 applic 05/02/17 - Diagnosis (1) Alcohol dependence with uncomplicated withdrawal Current Visit: No Status: Acute (2) History of syphilis Current Visit: Yes Status: Acute (3) Celiac disease Current Visit: No Status: Chronic (4) Cocaine dependence Current Visit: Yes Status: Acute (5) Insomnia Current Visit: No Status: Chronic Qualifiers: Insomnia type: unspecified Qualified Code(s): G47.00 - Insomnia, unspecified - AMA Did Patient Leave Against Medical Advice: No
== END 2017-05-03 10:15 | disposition home or self-care (01) | DRG 774 ==
LOC: YASAS 14:22 → Y6N 16:08
PROVIDERS: ADMIT Internal Medicine; ATTEND Internal Medicine
PROC: HZ2ZZZZ Detoxification Services for Substance Abuse Treatment (ICD-10-PCS; principal; 2017-04-29)
DX: F10.230 Alcohol dependence with withdrawal, uncomplicated (principal); F14.20 Cocaine dependence, uncomplicated; F12.20 Cannabis dependence, uncomplicated; F10.280 Alcohol dependence with alcohol-induced anxiety disorder; F10.24 Alcohol dependence with alcohol-induced mood disorder; B18.2 Chronic viral hepatitis C; K90.0 Celiac disease; G47.00 Insomnia, unspecified; Z86.19 Personal history of other infectious and parasitic diseases
CPT/HCPCS: 36415; 80053; 81003; 85027; 86593; 86780; 87389; 93005; 93010

== ENCOUNTER 2017-10-03 18:09 | Inpatient (IN) | payer OTHER ==
[2017-10-03 18:17] VITALS: BMI 29.8
--- NOTE | 2017-10-03 18:20 | HP ---
CIWA Score - CIWA Score Nausea/Vomitin-Int. Nausea w/Dry Heave Muscle Tremors: 6 Anxiety: 4-Mod. Anxious/Guarded Agitation: 3 Paroxysmal Sweats: 3 Orientation: 0-Oriented Tacttile Disturbances: 1-Very Mild Itch/Numbness Auditory Disturbances: 0-None Visual Disturbances: 0-None Headache: 1-Very Mild CIWA-Ar Total Score: 22 Admission ROS BHS - HPI Chief Complaint: " I need to get better" alcohol withdrawal symptoms Allergies/Adverse Reactions: Allergies Allergy/AdvReac Type Severity Reaction Status Date / Time mushroom Allergy Severe Swelling Verified 04/29/17 15:31 amoxicillin AdvReac abdominal Verified 04/29/17 15:31 pain History of Present Illness: 32 yo male with hx of GHB, alcohol dependence and occasional amphetamine use, is here seeking detox. As per patient her was released today from [facility] emergency department blackouts and alcohol intoxication. Patient reports prior to his visit to the [facility] emergency department he was admitted for three days at [facility] and released 10/02/17 for suicide attempt. Patient at this time denies suicidal / homicidal ideation or visual / auditory hallucinations. Reports psych admission 2013 for auditory hallucinations after taking GHB. Reports hx of alcohol related withdrawal seizure and DTS. PMHX: Celiac disease, depression. Reports multiple admissions to detox, unable to recall the last episode or location. Reports was discharged this past August from [facility]. Longest period of sobriety four months. Exam Limitations: No Limitations - Ebola screening Have you traveled outside of the country in the last 21 days: No (N) Have you had contact with anyone from an Ebola affected area: No Do you have a fever: No - Review of Systems Constitutional: Chills, Diaphoresis, Changes in sleep, Weakness, Other (tremors) EENT: reports: No Symptoms Reported Respiratory: reports: No Symptoms reported Cardiac: reports: Lightheadedness GI: reports: Diarrhea, Nausea, Poor Appetite, Poor Fluid Intake, Vomiting : reports: No Symptoms Reported Musculoskeletal: reports: No Symptoms Reported Integumentary: reports: Other (abrasion on right elbow and right forehead unaware, and bruise on the right hip) Neuro: reports: See HPI, Weakness Endocrine: reports: No Symptoms Reported Hematology: reports: See HPI Psychiatric: reports: Orientated x3, Depressed (recent seperation from significant other and job loss) Other Systems: Reviewed and Negative Patient History - Patient Medical History Hx Anemia: No Hx Asthma: No Hx Chronic Obstructive Pulmonary Disease (COPD): No Hx Cancer: No Hx Cardiac Disorders: No Hx Congestive Heart Failure: No Hx Hypertension: No Hx Hypercholesterolemia: No Hx Pacemaker: No HX Cerebrovascular Accident: No Hx Seizures: Yes (Alcohol induced) Hx Dementia: No Hx Diabetes: No Hx Gastrointestinal Disorders: Yes (acid reflux, celiac disease ) Hx Liver Disease: No Hx Genitourinary Disorders: No Hx Sexually Transmitted Disorders: Yes (syphilis) Hx Renal Disease (ESRD): No Hx Thyroid Disease: No Hx Human Immunodeficiency Virus (HIV): No (last tested 03/2017) Hx Hepatitis C: Yes (Recently diagnosed, to start tx) Hx Depression: No Hx Suicide Attempt: No (denies current idea/attempt) Hx Bipolar Disorder: No Hx Schizophrenia: No - Patient Surgical History Past Surgical History: Yes Hx Neurologic Surgery: No Hx Cataract Extraction: No Hx Cardiac Surgery: No Hx Lung Surgery: No Hx Breast Surgery: No Hx Breast Biopsy: No Hx Abdominal Surgery: No Hx Appendectomy: No Hx Cholecystectomy: No Hx Genitourinary Surgery: No Hx Section: No Hx Orthopedic Surgery: Yes (dislocation, left wrist at age 20) Hx Hysterectomy: No Anesthesia Reaction: No - PPD History Date: 05/01/17 PPD to be Administered?: Yes - Smoking Cessation Smoking history: Never smoked Have you smoked in the past 12 months: No Aproximately how many cigarettes per day: 0 Cigars Per Day: 0 Hx Chewing Tobacco Use: No Initiated information on smoking cessation: No - Substance & Tx. History Hx Alcohol Use: Yes Hx Substance Use: Yes Substance Use Type: Alcohol Hx Substance Use Treatment: Yes (Unable to recall last detox, rehab [facility] August 2017) - Substances Abused Alprazolam (Xanax) Route: Oral Frequency: Daily Amount used: 2 litters vodka Age of first use: 19 Date of Last Use: 10/02/17 GHB Route: Oral Frequency: Daily Amount used: 10 oz Age of first use: 23 Date of Last Use: 09/30/17 Methamphetamine Route: Smoking Frequency: 1-3 times last 30 days Amount used: unable to speciffy Age of first use: 23 Date of Last Use: 09/30/17 Family Disease History - Family Disease History Family Disease History: Diabetes: Father, Mother (Skin Ca), Other: Mother Admission Physical Exam [facility] - Physical General Appearance: Yes: Nourished, Disheveled, Tremorous, Sweating, Anxious HEENTM: Yes: EOMI, Hearing grossly Normal, Normal ENT Inspection, Normocephalic , Normal Voice, REYNOLD, Pharynx Normal, Tm's normal Respiratory: Yes: Chest Non-Tender, Lungs Clear, Normal Breath Sounds, No Respiratory Distress, No Accessory Muscle Use Neck: Yes: Within Normal Limits Breast: Yes: Breast Exam Deferred Cardiology: Yes: Regular Rhythm, Regular Rate Abdominal: Yes: Normal Bowel Sounds, Non Tender, Flat, Soft Genitourinary: Yes: Within Normal Limits Back: Yes: Normal Inspection Musculoskeletal: Yes: full range of Motion, Gait Steady, Pelvis Stable Extremities: Yes: Normal Capillary Refill, Normal Inspection, Normal Range of Motion, Non-Tender 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 NML intact, Alert, Motor Strength 5/5, Normal Response, Depressed Affect Integumentary: Yes: Normal Color, Warm, Other (abrasion right elbow, right forehead) Lymphatic: Yes: Within Normal Limits - Diagnostic (1) Tremor due to drug withdrawal Current Visit: Yes Status: Acute (2) Gamma-hydroxybutyrate (GHB) use disorder, moderate, dependence Current Visit: Yes Status: Acute (3) Amphetamine dependence, episodic Current Visit: Yes Status: Acute (4) Depression Current Visit: Yes Status: Suspected Qualifiers: Depression Type: dysthymia Qualified Code(s): F34.1 - Dysthymic disorder (5) Alcohol dependence with uncomplicated withdrawal Current Visit: Yes Status: Acute (6) Celiac disease Current Visit: Yes Status: Chronic Cleared for Admission [facility] - Detox or Rehab [facility] Level of Care: Medically Managed Detox Regimen/Protocol: Librium [facility] Breath Alcohol Content Breath Alcohol Content: 0.170
[2017-10-03] MEDS ORDERED: P-EPHED 60MG/TRIPROLIDI 2.5MG TABLET PO PRN (18:29)
[2017-10-03] MEDS ORDERED: MAGNESIUM CITRATE 300 ML BOTTLE PO PRN (18:29)
[2017-10-03] MEDS ORDERED: guaiFENesin/D-METHORPHAN HB 10 ML UNIT-DOSE CUPS PO PRN (18:29)
[2017-10-03] MEDS ORDERED: LOPERAMIDE HCL 2 MG CAPSULE PO PRN (18:29)
[2017-10-03] MEDS ORDERED: MAG HYDROX/AL HYDROX/SIMETH 30 ML UNIT-DOSE CUP PO PRN (18:29)
[2017-10-03] MEDS ORDERED: ACETAMINOPHEN 325 MG TABLET (FP) PO PRN (18:29)
[2017-10-03] MEDS ORDERED: MAGNESIUM HYDROX 2400MG/30ML ORAL SUSPENSION 30 ML CUP PO PRN (18:29)
[2017-10-03] MEDS ORDERED: MENTHOL/PHENOL 1 EACH UD MM PRN (18:29)
[2017-10-03] MEDS ORDERED: chlordiazePOXIDE HCL 25 MG CAPSULE PO ONE (19:45)
[2017-10-03] MEDS: THIAMINE HCL 100 MG TABLET (FP) PO SCH (22:15)
[2017-10-03] MEDS: MELATONIN 5 MG TABLETS PO PRN (22:16)
[2017-10-03] MEDS: chlordiazePOXIDE HCL 25 MG CAPSULE PO SCH (22:16)
[2017-10-03] MEDS: IBUPROFEN 400 MG TABLET (FP) PO PRN (22:18)
[2017-10-04] LABS: URINE APPEARANCE CLEAR; URINE BILIRUBIN NEGATIVE (<2.0 mg/dL); URINE COLOR YELLOW; URINE GLUCOSE (UA) NEGATIVE (NEGATIVE); URINE KETONE NEGATIVE (NEGATIVE); URINE LEUK ESTERASE NEGATIVE (NEGATIVE); URINE NITRITE NEGATIVE (NEGATIVE); URINE PROTEIN NEGATIVE (NEGATIVE)
[2017-10-04] MEDS: chlordiazePOXIDE HCL 25 MG CAPSULE PO SCH ×4 (05:15→22:30)
[2017-10-04 10:18] LABS: HEMATOCRIT 38.8 % (35.4-49); HEMOGLOBIN 12.9 GM/dL (11.7-16.9); MCH 29.7 pg (25.7-33.7); MCHC 33.2 g/dl (32.0-35.9); MEAN CELL VOLUME 89.4 fl (80-96); MEAN PLT VOLUME 8.6 fl (7.5-11.1); PLATELET COUNT 156 K/MM3 (134-434); RBC 4.34 M/mm3 (4.00-5.60); RDW 14.4 % (11.9-15.9); WHITE BLOOD COUNT 4.9 K/mm3 (4.0-10.0)
[2017-10-04] MEDS: PRENATAL VITAMINS W/ FOLIC ACID TABLET (FP) PO SCH (10:20)
[2017-10-04] MEDS: hydrOXYzine PAMOATE 50 MG CAPSULE (FP) PO PRN ×2 (10:21→22:34)
--- NOTE | 2017-10-04 12:03 | PN ---
S CIWA - CIWA Score Nausea/Vomitin-Mild Nausea/No Vomiting Muscle Tremors: 4-Moderate,w/Arms Extend Anxiety: 4-Mod. Anxious/Guarded Agitation: 4-Moderately Restless Paroxysmal Sweats: 1-Minimal Palms Moist Orientation: 0-Oriented Tacttile Disturbances: 1-Very Mild Itch/Numbness Auditory Disturbances: 0-None Visual Disturbances: 0-None Headache: 1-Very Mild CIWA-Ar Total Score: 16 BHS Progress Note (SOAP) Subjective: sweat chill hot and cold tremor trouble sleep at night muscle cramping Objective: 10/04/17 12:07 Vital Signs Temperature 98.2 F 10/04/17 09:28 Pulse Rate 67 10/04/17 09:28 Respiratory Rate 18 10/04/17 09:28 Blood Pressure 114/68 10/04/17 09:28 O2 Sat by Pulse Oximetry (%) Laboratory Last Values WBC 4.9 K/mm3 (4.0-10.0) 10/04/17 07:30 RBC 4.34 M/mm3 (4.00-5.60) 10/04/17 07:30 Hgb 12.9 GM/dL (11.7-16.9) 10/04/17 07:30 Hct 38.8 % (35.4-49) 10/04/17 07:30 MCV 89.4 fl (80-96) 10/04/17 07:30 MCH 29.7 pg (25.7-33.7) 10/04/17 07:30 MCHC 33.2 g/dl (32.0-35.9) 10/04/17 07:30 RDW 14.4 % (11.9-15.9) 10/04/17 07:30 Plt Count 156 K/MM3 (134-434) 10/04/17 07:30 MPV 8.6 fl (7.5-11.1) 10/04/17 07:30 Urine Color Yellow 10/03/17 Unknown Urine Appearance Clear 10/03/17 Unknown Urine pH 6.0 (5.0-8.0) 10/03/17 Unknown Ur Specific [place] 1.020 (1.001-1.035) 10/03/17 Unknown Urine Protein Negative (NEGATIVE) 10/03/17 Unknown Urine Glucose (UA) Negative (NEGATIVE) 10/03/17 Unknown Urine Ketones Negative (NEGATIVE) 10/03/17 Unknown Urine Blood Negative (NEGATIVE) 10/03/17 Unknown Urine Nitrite Negative (NEGATIVE) 10/03/17 Unknown Urine Bilirubin Negative (<2.0 mg/dL) 10/03/17 Unknown Urine Urobilinogen 2.0 mg/dL (0.2-1.0) 10/03/17 Unknown Ur Leukocyte Esterase Negative (NEGATIVE) 10/03/17 Unknown lab noted Assessment: 10/04/17 12:07 withdrawal sx Plan: continue detox muscle relaxant
--- NOTE | 2017-10-04 12:18 | EKG ---
Test Reason : Blood Pressure : / mmHG Vent. Rate : 076 BPM Atrial Rate : 076 BPM P-R Int : 128 ms QRS Dur : 090 ms QT Int : 378 ms P-R-T Axes : 033 012 011 degrees QTc Int : 425 ms NORMAL SINUS RHYTHM NORMAL ECG WHEN COMPARED WITH ECG OF 29-APR-2017 18:03, NO SIGNIFICANT CHANGE WAS FOUND Confirmed by MAGGY OSULLIVAN MD ([id number]) on 10/04/2017 12:17:54 PM Referred By: Confirmed By:MAGGY OSULLIVAN MD
[2017-10-04 12:32] LABS: CHLORIDE 104 mmol/L (98-107); POTASSIUM 3.5 mmol/L (3.5-5.1); SODIUM 142 mmol/L (136-145)
[2017-10-04 12:52] LABS: RPR REACTIVE 1:1 (NONREACTIVE)
[2017-10-04 12:54] LABS: TREPONEMA ANTIBODY PREVIOUSLY REACTIVE (NONREACTIVE)
[2017-10-04] MEDS: chlordiazePOXIDE HCL 25 MG CAPSULE PO PRN ×2 (12:57→21:40)
[2017-10-04] MEDS: BACLOFEN 10 MG TABLET (FP) PO PRN ×2 (12:57→22:33)
[2017-10-04 13:02] LABS: ALBUMIN 3.6 g/dl (3.4-5.0); ALK PHOS 52 U/L (45-117); ANION GAP 10 MMOL/L (8-16); BILIRUBIN,TOTAL 0.8 mg/dL (0.2-1.0); BLOOD UREA NITROGEN 17 mg/dL (7-18); CO2 28 mmol/L (21-32); CREATININE 0.9 mg/dL (0.7-1.3); GLUCOSE,RANDOM 87 mg/dL (74-106); SGOT/AST 49 U/L (15-37); SGPT/ALT 62 U/L (12-78); TOT PROT 6.1 g/dl (6.4-8.2)
--- NOTE | 2017-10-04 17:29 | CONSULT ---
[facility] Psychiatric Consult - Data Date of interview: 10/04/17 Admission source: [facility] Identifying data: Patient is a 32 year old single male, without children, unemployed, and currently homeless. This is patient's first admission to detox at [facility]. Pt admitted to for alcohol dependence. Substance Abuse History: Substance & Tx. History. Hx Alcohol Use: Yes. Hx Substance Use: Yes. Substance Use Type: Alcohol. Hx Substance Use Treatment: Yes (Unable to recall last detox, rehab [facility] August 2017). - Substances Abused. Alprazolam (Xanax). Route: Oral. Frequency: Daily. Amount used: 2 litters vodka. Age of first use: 19. Date of Last Use: 10/02/17. GHB. Route: Oral. Frequency: Daily. Amount used: 10 oz. Age of first use: 23. Date of Last Use: 09/30/17. Methamphetamine. Route: Smoking. Frequency: 1- 3 times last 30 days. Amount used: unable to speciffy. Age of first use: 23. Date of Last Use: 09/30/17 Medical History: acid reflux, celiac disease, Hep C, Seizures (withdrawal) Psychiatric History: Patient reports admission to the [facility] at [place] (last week) for a suicide attempt via alcohol and pills. Pt. states he was retained for 72 hours then released. While at [place] patient refused to accept zoloft. Later during the week he went to [facility] and reports being transferrd to [facility] for detox. Pt. denies current thoughts or urges to hurt himself. Pt. states he would like to return to [facility] but he would first have to complete detox and then go to [facility]. Pt. refusing to contine conversation, stating to documentation writer, "i'm tired and sleepy. can we continue to speak later." Patient presented as sleepy and lethargic throughout interview. Pt. is not requesting any additional medication. Pt. refused to start zoloft. Physical/Sexual Abuse/Trauma History: denies. Mental Status Exam - Mental Status Exam Alert and Oriented to: Time, Place, Person Cognitive Function: Good Patient Appearance: Well Groomed Mood: Withdrawn, Euthymic Affect: Mood Congruent Patient Behavior: Sedated (patient appeared drowsy and lethargic), Fatigued, Cooperative Speech Pattern: Appropriate Voice Loudness: Moderately Soft/Quiet Thought Process: Goal Oriented Thought Disorder: Not Present Hallucinations: Denies Suicidal Ideation: Denies Homicidal Ideation: Denies Insight/Judgement: Poor Sleep: Fair Appetite: Fair Muscle strength/Tone: Normal Gait/Station: Normal Psychiatric Findings - Problem List ([place] 1, 2,3) (1) Alcohol dependence with uncomplicated withdrawal Status: Acute (2) Alcohol-induced mood disorder Status: Acute (3) Depressive disorder Status: Suspected - Initial Treatment Plan Initial Treatment Plan: Psychoeducation provided. Detoxification in progress. Observation.
[2017-10-04] MEDS: THIAMINE HCL 100 MG TABLET (FP) PO SCH (22:30)
[2017-10-05] MEDS: chlordiazePOXIDE HCL 25 MG CAPSULE PO SCH ×3 (05:18→17:28)
[2017-10-05] MEDS: BACLOFEN 10 MG TABLET (FP) PO PRN ×2 (08:11→17:29)
--- NOTE | 2017-10-05 10:38 | PN ---
[facility] CIWA - CIWA Score Nausea/Vomitin Muscle Tremors: 3 Anxiety: 2 Agitation: 2 Paroxysmal Sweats: 3 Orientation: 0-Oriented Tacttile Disturbances: 2-Mild Itch/Numbness/Burn Auditory Disturbances: 0-None Visual Disturbances: 0-None Headache: 0-None Present CIWA-Ar Total Score: 15 [facility] Progress Note (SOAP) Subjective: interrupted sleep, sweats, shakes, leg cramps Objective: 10/05/17 10:36 Vital Signs Temperature 97.3 F L 10/05/17 06:00 Pulse Rate 55 L 10/05/17 06:00 Respiratory Rate 18 10/05/17 06:00 Blood Pressure 121/69 10/05/17 06:00 O2 Sat by Pulse Oximetry (%) Laboratory Tests 10/03/17 10/04/17 10/04/17 Unknown 07:30 07:30 WBC 4.9 RBC 4.34 Hgb 12.9 Hct 38.8 MCV 89.4 MCH 29.7 MCHC 33.2 RDW 14.4 Plt Count 156 MPV 8.6 Sodium 142 Potassium 3.5 Chloride 104 Carbon Dioxide 28 Anion Gap 10 BUN 17 Creatinine 0.9 Creat Clearance w eGFR > 60 Random Glucose 87 Calcium 9.0 Total Bilirubin 0.8 AST 49 H D ALT 62 Alkaline Phosphatase 52 Total Protein 6.1 L Albumin 3.6 Urine Color Yellow Urine Appearance Clear Urine pH 6.0 Ur Specific [place] 1.020 Urine Protein Negative Urine Glucose (UA) Negative Urine Ketones Negative Urine Blood Negative Urine Nitrite Negative Urine Bilirubin Negative Urine Urobilinogen 2.0 Ur Leukocyte Esterase Negative RPR Titer T.pallidum Ab (A) 10/04/17 07:30 WBC RBC Hgb Hct MCV MCH MCHC RDW Plt Count MPV Sodium Potassium Chloride Carbon Dioxide Anion Gap BUN Creatinine Creat Clearance w eGFR Random Glucose Calcium Total Bilirubin AST ALT Alkaline Phosphatase Total Protein Albumin Urine Color Urine Appearance Urine pH Ur Specific [place] Urine Protein Urine Glucose (UA) Urine Ketones Urine Blood Urine Nitrite Urine Bilirubin Urine Urobilinogen Ur Leukocyte Esterase RPR Titer Reactive 1:1 H T.pallidum Ab (MHA) Previously reactive pt aox3 lying in bed in nad mild tremor Assessment: 10/05/17 10:37 withdrawal sx;s RPR 1;1 was 1;2 on 07/06/16 10/05/17 10:37 Plan: cont. detox increase fluids cont baclofen
[2017-10-05] MEDS: PRENATAL VITAMINS W/ FOLIC ACID TABLET (FP) PO SCH (12:03)
[2017-10-05] MEDS: chlordiazePOXIDE 5 MG CAPSULE PO SCH (22:11)
[2017-10-05] MEDS: THIAMINE HCL 100 MG TABLET (FP) PO SCH (22:12)
[2017-10-05] MEDS: MELATONIN 5 MG TABLETS PO PRN (22:13)
[2017-10-05] MEDS: hydrOXYzine PAMOATE 50 MG CAPSULE (FP) PO PRN (22:14)
[2017-10-06] MEDS: chlordiazePOXIDE 5 MG CAPSULE PO SCH ×3 (06:12→17:56)
[2017-10-06] MEDS: BACLOFEN 10 MG TABLET (FP) PO PRN ×2 (07:37→17:55)
[2017-10-06] MEDS: chlordiazePOXIDE HCL 25 MG CAPSULE PO PRN ×2 (07:37→13:49)
[2017-10-06] MEDS: PRENATAL VITAMINS W/ FOLIC ACID TABLET (FP) PO SCH (10:07)
--- NOTE | 2017-10-06 10:20 | PN ---
S Progress Note (SOAP) Subjective: feeling better reported muscle relaxant help muscle cramping and tremor less sweat no GI distress Objective: 10/06/17 10:18 Vital Signs Temperature 97.3 F L 10/06/17 09:21 Pulse Rate 57 L 10/06/17 09:21 Respiratory Rate 16 10/06/17 09:21 Blood Pressure 109/62 10/06/17 09:21 O2 Sat by Pulse Oximetry (%) Laboratory Last Values WBC 4.9 K/mm3 (4.0-10.0) 10/04/17 07:30 RBC 4.34 M/mm3 (4.00-5.60) 10/04/17 07:30 Hgb 12.9 GM/dL (11.7-16.9) 10/04/17 07:30 Hct 38.8 % (35.4-49) 10/04/17 07:30 MCV 89.4 fl (80-96) 10/04/17 07:30 MCH 29.7 pg (25.7-33.7) 10/04/17 07:30 MCHC 33.2 g/dl (32.0-35.9) 10/04/17 07:30 RDW 14.4 % (11.9-15.9) 10/04/17 07:30 Plt Count 156 K/MM3 (134-434) 10/04/17 07:30 MPV 8.6 fl (7.5-11.1) 10/04/17 07:30 Sodium 142 mmol/L (136-145) 10/04/17 07:30 Potassium 3.5 mmol/L (3.5-5.1) 10/04/17 07:30 Chloride 104 mmol/L (98-107) 10/04/17 07:30 Carbon Dioxide 28 mmol/L (21-32) 10/04/17 07:30 Anion Gap 10 MMOL/L (8-16) 10/04/17 07:30 BUN 17 mg/dL (7-18) 10/04/17 07:30 Creatinine 0.9 mg/dL (0.7-1.3) 10/04/17 07:30 Creat Clearance w eGFR > 60 (>60) 10/04/17 07:30 Random Glucose 87 mg/dL (74-106) 10/04/17 07:30 Calcium 9.0 mg/dL (8.5-10.1) 10/04/17 07:30 Total Bilirubin 0.8 mg/dL (0.2-1.0) 10/04/17 07:30 AST 49 U/L (15-37) H D 10/04/17 07:30 ALT 62 U/L (12-78) 10/04/17 07:30 Alkaline Phosphatase 52 U/L (45-117) 10/04/17 07:30 Total Protein 6.1 g/dl (6.4-8.2) L 10/04/17 07:30 Albumin 3.6 g/dl (3.4-5.0) 10/04/17 07:30 Urine Color Yellow 10/03/17 Unknown Urine Appearance Clear 10/03/17 Unknown Urine pH 6.0 (5.0-8.0) 10/03/17 Unknown Ur Specific [place] 1.020 (1.001-1.035) 10/03/17 Unknown Urine Protein Negative (NEGATIVE) 10/03/17 Unknown Urine Glucose (UA) Negative (NEGATIVE) 10/03/17 Unknown Urine Ketones Negative (NEGATIVE) 10/03/17 Unknown Urine Blood Negative (NEGATIVE) 10/03/17 Unknown Urine Nitrite Negative (NEGATIVE) 10/03/17 Unknown Urine Bilirubin Negative (<2.0 mg/dL) 10/03/17 Unknown Urine Urobilinogen 2.0 mg/dL (0.2-1.0) 10/03/17 Unknown Ur Leukocyte Esterase Negative (NEGATIVE) 10/03/17 Unknown RPR Titer Reactive 1:1 (NONREACTIVE) H 10/04/17 07:30 T.pallidum Ab (MHA) Previously reactive (NONREACTIVE) 10/04/17 07:30 lab noted reported syphilis was treated many years ago Assessment: 10/06/17 10:19 mild alcohol withdrawal sx Plan: medically supervised detox
--- NOTE | 2017-10-06 18:16 | PN ---
Psychiatric Progress Note Vital Signs: Vital Signs Period Temp Pulse Resp BP Sys/Nj Pulse Ox Last 24 Hr 96.1 F-98.1 F 53-73 16-18 108-133/59-77 Date of Session: 10/06/17 Chief Complaint:: " I want to talk to a psychiatrist." HPI: Day 4 of detoxification treatment for this 32 y/o male, self- referred to [facility] to address alcohol,metamphetamine and GHB dependence.Patient requested to see a psychiatrist today to discuss options of treatment for his persistently depressed mood,anhedonia,dilapidated self-esteem and his craving for substances.Suicidal ideation or plan is not endorsed by patient at time of examination.Mr Ander felt that he was not fully awake when seen by psychiatric jd edwards consultant on his admission to the unit. ROS: Patient is ambulatory,somewhat slow but fully awake,alert and oriented to the three spheres.No somatic complaint offered at this time.Normal vitals. Current Medications: Active Medications Generic Name Dose Route Start Last Admin Trade Name Freq PRN Reason Stop Dose Admin Acetaminophen 650 mg 10/03/17 18:29 Tylenol - PO Q4H PRN FEVER Al Hydroxide/Mg Hydroxide 30 ml 10/03/17 18:29 Mylanta Oral Suspension - PO Q6H PRN DYSPEPSIA Baclofen 10 mg 10/04/17 12:34 10/06/17 17:55 Lioresal - PO 10 mg TID PRN Administration BACK PAIN Chlordiazepoxide HCl 25 mg 10/03/17 18:29 10/06/17 13:49 Librium - PO 10/06/17 18:28 25 mg Q4H PRN Administration WITHDRAWAL(CONT SUBST) Chlordiazepoxide HCl 10 mg 10/06/17 23:00 Librium - PO 10/07/17 17:01 [id number] Eucalyptus/Menthol/Phenol/Sorbitol 1 each 10/03/17 18:29 Cepastat Lozenge - MM Q4H PRN SORE THROAT Guaifenesin 10 ml 10/03/17 18:29 Robitussin Dm - PO Q6H PRN COUGH Hydroxyzine Pamoate 50 mg 10/03/17 18:29 10/05/17 22:14 Vistaril - PO 50 mg Q4H PRN Administration AGITATION Ibuprofen 400 mg 10/03/17 18:29 10/03/17 22:18 Motrin - PO 400 mg Q6H PRN Administration PAIN LEVEL 4-6 Loperamide HCl 4 mg 10/03/17 18:29 10/05/17 12:08 Imodium - PO 4 mg Q6H PRN Administration DIARRHEA Magnesium Citrate 300 ml 10/03/17 18:29 Citroma - PO Q48H PRN CONSTIPATION Magnesium Hydroxide 30 ml 10/03/17 18:29 Milk Of Magnesia - PO DAILY PRN CONSTIPATION Melatonin 5 mg 10/03/17 22:00 10/05/17 22:13 Melatonin PO 5 mg HS PRN Administration INSOMNIA Multivit/Folic Acid/Iron 1 tab 10/04/17 10:00 10/06/17 10:07 Vitamins (Sjr) - PO 1 tab DAILY YO Administration Pseudoephedrine/Triprolidine 1 combo 10/03/17 18:29 Actifed - PO TID PRN NASAL CONGESTION Thiamine HCl 100 mg 10/03/17 22:00 10/05/17 22:12 Vitamin B1 - PO 100 mg HS YO Administration Medication(s) Change(s): Patient admits to feeling depressed and he also presents with complaint of chronic insomnia.Mr Worthington indicates his willingness to take sertraline (encouraged by his own readings about the therapeutic virtues of that drug) and zolpidem (has been taking that medication for about seven years with favorable results).Will initiate treatment with zoloft 50 mg po daily + ambien 10 mg po hs prn.Patient is made aware of the risk of recurrence of suicidal ideation,sexual dysfunction and parasomnias.Mr Worthington has expressed his agreement to this plan of care. 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 technician Cheyanne's note of 10/04/17 : appreciated.Case discussed in conference (patient in attendance) with counselor Ariel.Patient is re-evaluated.Mr Worthington is well-mannered,conversant and articulate about his issues.He recognizes that he cannot " go on without considering medications " to address his depresssion and craving for substances (GHB,alcohol,metamphetamine).Patient is inquisitive about naltrexone and vivitrol.Mr Worthington is clear about NOT feeling suicidal and he is seriously invested in transitioning to rehabilitation treatment.However,the patient has expressed his fear of discharge over this week-end." I know what is going to happen.I will buy alcohol, probably go after the dude (sic) for more GHB,get high and find myself in the same circumstances that led me to my impulsive behaviors." He is against transfer to a psychiatric facility and he feels that an extension of his stay at [facility], during this critical week-end, would be therapeutic and safe.Mr Worthington does not meet criteria for psychiatric inpatient committment and his request for further stay on is legitimate and reasonable (medications started in the meantime).He is participating actively in all aspects of his care which justifies the support of the Multdisciplinary team to facilitate a smooth/safe transition to rehabilitation (referral papers in process).Mental status is stable.In view of current situation (homelessness, unexpected loss of employment,break-up with partner,frequent CPEP visits,recent suicide attempts) the patient is at a considerable risk for immediate relapse ( he has verbalized his weaknesses/limitations) and an extension of his stay on the detoxification unit will not only be humanitarian but prudent, considering this patient's emotional fragility and his encline to self-destructive behaviors (sexual indiscretions,abuse of dangerous chemicals,alcohol binges) .Discussed with counselor Jose Rafael Berger. Total face to face time:: 45 Mental Status Exam - Mental Status Exam Alert and Oriented to: Time, Place, Person Cognitive Function: Good Patient Appearance: Well Groomed Mood: Withdrawn, Anxious, Apprehensive Affect: Mood Congruent, Constricted Patient Behavior: Appropriate, Cooperative Speech Pattern: Clear, Appropriate (conversant,articulate) Voice Loudness: Normal Thought Process: Goal Oriented Thought Disorder: Not Present Hallucinations: Denies Suicidal Ideation: Denies Homicidal Ideation: Denies Insight/Judgement: Fair Sleep: Poorly, Difficulty falling asleep Appetite: Fair Gait/Station: Normal Psychiatric Treatment Plan - Problem List (1) Alcohol dependence with uncomplicated withdrawal Current Visit: Yes (2) Gamma-hydroxybutyrate (GHB) use disorder, moderate, dependence Current Visit: Yes (3) Amphetamine dependence, episodic Current Visit: Yes (4) Drug-induced mood disorder Current Visit: Yes (5) Depressive disorder Current Visit: Yes (6) Adjustment disorder with mixed anxiety and depressed mood Current Visit: Yes Comment: Suspected. (7) Insomnia Current Visit: Yes Qualifiers: Insomnia type: unspecified Qualified Code(s): G47.00 - Insomnia, unspecified
[2017-10-06] MEDS: chlordiazePOXIDE HCL 10 MG CAPSULE PO SCH (22:14)
[2017-10-06] MEDS: THIAMINE HCL 100 MG TABLET (FP) PO SCH (22:14)
[2017-10-06] MEDS: ZOLPIDEM TARTRATE 10 MG TABLET (PARK CARE ONLY) PO PRN (22:17)
[2017-10-07] MEDS: chlordiazePOXIDE HCL 10 MG CAPSULE PO SCH ×3 (06:28→17:59)
[2017-10-07] MEDS: PRENATAL VITAMINS W/ FOLIC ACID TABLET (FP) PO SCH (10:00)
[2017-10-07] MEDS: SERTRALINE HCL 50 MG TABLET (FP) PO SCH (10:00)
[2017-10-07] MEDS: BACLOFEN 10 MG TABLET (FP) PO PRN ×2 (10:01→18:57)
--- NOTE | 2017-10-07 11:30 | PN ---
[facility] Progress Note (SOAP) Subjective: patient appears to be depressed t reports had two overdose suicide attempts a few weeks ago prior to admitted to alcohol detox patient is alert oriented x 3 low energy sad low voice anxiety trouble sleep at night Objective: 10/07/17 11:30 Vital Signs Temperature 97.0 F L 10/07/17 09:32 Pulse Rate 58 L 10/07/17 09:32 Respiratory Rate 16 10/07/17 09:32 Blood Pressure 109/71 10/07/17 09:32 O2 Sat by Pulse Oximetry (%) 10/07/17 11:31 Laboratory Last Values WBC 4.9 K/mm3 (4.0-10.0) 10/04/17 07:30 RBC 4.34 M/mm3 (4.00-5.60) 10/04/17 07:30 Hgb 12.9 GM/dL (11.7-16.9) 10/04/17 07:30 Hct 38.8 % (35.4-49) 10/04/17 07:30 MCV 89.4 fl (80-96) 10/04/17 07:30 MCH 29.7 pg (25.7-33.7) 10/04/17 07:30 MCHC 33.2 g/dl (32.0-35.9) 10/04/17 07:30 RDW 14.4 % (11.9-15.9) 10/04/17 07:30 Plt Count 156 K/MM3 (134-434) 10/04/17 07:30 MPV 8.6 fl (7.5-11.1) 10/04/17 07:30 Sodium 142 mmol/L (136-145) 10/04/17 07:30 Potassium 3.5 mmol/L (3.5-5.1) 10/04/17 07:30 Chloride 104 mmol/L (98-107) 10/04/17 07:30 Carbon Dioxide 28 mmol/L (21-32) 10/04/17 07:30 Anion Gap 10 MMOL/L (8-16) 10/04/17 07:30 BUN 17 mg/dL (7-18) 10/04/17 07:30 Creatinine 0.9 mg/dL (0.7-1.3) 10/04/17 07:30 Creat Clearance w eGFR > 60 (>60) 10/04/17 07:30 Random Glucose 87 mg/dL (74-106) 10/04/17 07:30 Calcium 9.0 mg/dL (8.5-10.1) 10/04/17 07:30 Total Bilirubin 0.8 mg/dL (0.2-1.0) 10/04/17 07:30 AST 49 U/L (15-37) H D 10/04/17 07:30 ALT 62 U/L (12-78) 10/04/17 07:30 Alkaline Phosphatase 52 U/L (45-117) 10/04/17 07:30 Total Protein 6.1 g/dl (6.4-8.2) L 10/04/17 07:30 Albumin 3.6 g/dl (3.4-5.0) 10/04/17 07:30 Urine Color Yellow 10/03/17 Unknown Urine Appearance Clear 10/03/17 Unknown Urine pH 6.0 (5.0-8.0) 10/03/17 Unknown Ur Specific [place] 1.020 (1.001-1.035) 10/03/17 Unknown Urine Protein Negative (NEGATIVE) 10/03/17 Unknown Urine Glucose (UA) Negative (NEGATIVE) 10/03/17 Unknown Urine Ketones Negative (NEGATIVE) 10/03/17 Unknown Urine Blood Negative (NEGATIVE) 10/03/17 Unknown Urine Nitrite Negative (NEGATIVE) 10/03/17 Unknown Urine Bilirubin Negative (<2.0 mg/dL) 10/03/17 Unknown Urine Urobilinogen 2.0 mg/dL (0.2-1.0) 10/03/17 Unknown Ur Leukocyte Esterase Negative (NEGATIVE) 10/03/17 Unknown RPR Titer Reactive 1:1 (NONREACTIVE) H 10/04/17 07:30 T.pallidum Ab (MHA) Previously reactive (NONREACTIVE) 10/04/17 07:30 lab noted Assessment: 10/07/17 11:32 depression mild alcohol withdrawal sx recent suicidal attempts Plan: case will discuss with psychiatrist for further depression intervention
--- NOTE | 2017-10-07 12:31 | PN ---
[facility] Progress Note Note: Chart reviewed, patient seen and re-evaluated He is admitted to Detox for ETOH use disorder, his detox was deemed completed and the plan was for him to be discharged today to [facility] after care treatment due to his recent history of severe suicide attempt he was rejected and no longer accepted Patient continues to feel depressed and expresses concerns that he might go on an drinking binge and harm self again without further Detox treatment. He wishes to receive eafter care treatment in a [facility] program He explained that his life has spiraled downward due to recent Job less, and was kicked out of hie living environment, he is homeless no place to live, no support system, with the exception of his father who live in [place]. He has a few friends all of which are alcoholic and onn drugs . He feels very depressed, apprehensive with excessive worries living the unit at this time given the holiday time and the urge to drink Vodka He was recently started on Zoloft yesterday and has no impaxt on his depressive feelings MSE: patient is alert, calm and cooperative looks his age with good eye contact. His avtivity level is normal. His speech is articulated, soft spoken coherent relavant goal directed normal rate and vol;ume His mood is sullen and his affect appropriate Mo thought disorder, no delusions expressed He denies auditory or visual hallucinations, denies suicidal or intent at this time later added I wouldn't mind If i did not wake up tomorrow. denies homicida ; ideation Limited insight and judgment Impulse control adequate Given above and current stressors Hold patient in the unit for safety pending adequate after care treatment recommendation Monitor treatment progress Re-evaluation by psychiatry as deemed clinically necessary
[2017-10-07] MEDS: hydrOXYzine PAMOATE 50 MG CAPSULE (FP) PO PRN (15:12)
[2017-10-07] MEDS: THIAMINE HCL 100 MG TABLET (FP) PO SCH (22:27)
[2017-10-07] MEDS: ZOLPIDEM TARTRATE 10 MG TABLET (PARK CARE ONLY) PO PRN (22:28)
[2017-10-08] MEDS: IBUPROFEN 400 MG TABLET (FP) PO PRN ×2 (01:11→18:16)
[2017-10-08] MEDS: hydrOXYzine PAMOATE 50 MG CAPSULE (FP) PO PRN ×4 (01:13→22:08)
[2017-10-08] MEDS: SERTRALINE HCL 50 MG TABLET (FP) PO SCH (10:03)
[2017-10-08] MEDS: PRENATAL VITAMINS W/ FOLIC ACID TABLET (FP) PO SCH (10:03)
[2017-10-08] MEDS: BACLOFEN 10 MG TABLET (FP) PO PRN ×2 (10:04→18:16)
--- NOTE | 2017-10-08 11:26 | PN ---
S Progress Note (SOAP) Subjective: patient reported depressed able to contract safety with the travel writer that no self harm while in the detox unit stated that [facility] will pick him up for chemical rehab Objective: 10/08/17 11:25 Vital Signs Temperature 97.1 F L 10/08/17 09:27 Pulse Rate 67 10/08/17 09:27 Respiratory Rate 20 10/08/17 09:27 Blood Pressure 114/75 10/08/17 09:27 O2 Sat by Pulse Oximetry (%) Laboratory Last Values WBC 4.9 K/mm3 (4.0-10.0) 10/04/17 07:30 RBC 4.34 M/mm3 (4.00-5.60) 10/04/17 07:30 Hgb 12.9 GM/dL (11.7-16.9) 10/04/17 07:30 Hct 38.8 % (35.4-49) 10/04/17 07:30 MCV 89.4 fl (80-96) 10/04/17 07:30 MCH 29.7 pg (25.7-33.7) 10/04/17 07:30 MCHC 33.2 g/dl (32.0-35.9) 10/04/17 07:30 RDW 14.4 % (11.9-15.9) 10/04/17 07:30 Plt Count 156 K/MM3 (134-434) 10/04/17 07:30 MPV 8.6 fl (7.5-11.1) 10/04/17 07:30 Sodium 142 mmol/L (136-145) 10/04/17 07:30 Potassium 3.5 mmol/L (3.5-5.1) 10/04/17 07:30 Chloride 104 mmol/L (98-107) 10/04/17 07:30 Carbon Dioxide 28 mmol/L (21-32) 10/04/17 07:30 Anion Gap 10 MMOL/L (8-16) 10/04/17 07:30 BUN 17 mg/dL (7-18) 10/04/17 07:30 Creatinine 0.9 mg/dL (0.7-1.3) 10/04/17 07:30 Creat Clearance w eGFR > 60 (>60) 10/04/17 07:30 Random Glucose 87 mg/dL (74-106) 10/04/17 07:30 Calcium 9.0 mg/dL (8.5-10.1) 10/04/17 07:30 Total Bilirubin 0.8 mg/dL (0.2-1.0) 10/04/17 07:30 AST 49 U/L (15-37) H D 10/04/17 07:30 ALT 62 U/L (12-78) 10/04/17 07:30 Alkaline Phosphatase 52 U/L (45-117) 10/04/17 07:30 Total Protein 6.1 g/dl (6.4-8.2) L 10/04/17 07:30 Albumin 3.6 g/dl (3.4-5.0) 10/04/17 07:30 Urine Color Yellow 10/03/17 Unknown Urine Appearance Clear 10/03/17 Unknown Urine pH 6.0 (5.0-8.0) 10/03/17 Unknown Ur Specific [place] 1.020 (1.001-1.035) 10/03/17 Unknown Urine Protein Negative (NEGATIVE) 10/03/17 Unknown Urine Glucose (UA) Negative (NEGATIVE) 10/03/17 Unknown Urine Ketones Negative (NEGATIVE) 10/03/17 Unknown Urine Blood Negative (NEGATIVE) 10/03/17 Unknown Urine Nitrite Negative (NEGATIVE) 10/03/17 Unknown Urine Bilirubin Negative (<2.0 mg/dL) 10/03/17 Unknown Urine Urobilinogen 2.0 mg/dL (0.2-1.0) 10/03/17 Unknown Ur Leukocyte Esterase Negative (NEGATIVE) 10/03/17 Unknown RPR Titer Reactive 1:1 (NONREACTIVE) H 10/04/17 07:30 T.pallidum Ab (MHA) Previously reactive (NONREACTIVE) 10/04/17 07:30 lab noted syphilis treated by history Assessment: 10/08/17 11:27 depression Plan: medically supervised detox
[2017-10-08] MEDS: THIAMINE HCL 100 MG TABLET (FP) PO SCH (22:08)
[2017-10-08] MEDS: ZOLPIDEM TARTRATE 10 MG TABLET (PARK CARE ONLY) PO PRN (22:08)
[2017-10-09 09:55] VITALS: BP 147/80; PULSE 79; TEMP 97.9
[2017-10-09] MEDS: SERTRALINE HCL 50 MG TABLET (FP) PO SCH (10:42)
[2017-10-09] MEDS: BACLOFEN 10 MG TABLET (FP) PO PRN (10:42)
[2017-10-09] MEDS: PRENATAL VITAMINS W/ FOLIC ACID TABLET (FP) PO SCH (10:42)
--- NOTE | 2017-10-09 11:44 | DS ---
[facility] Detox Discharge Summary Admission Date: 10/03/17 Discharge Date: 10/09/17 - History Present History: Alcohol Dependence Additional Comments: 32 YEARS OLD MALE ADMITTED ON 10/03/17 FOR ALCOHOL WITHDRAWAL SX COMPLETED ALCOHOL DETOX REGIMEN TOLERATED WELL DENIES ALCOHOL WITHDRAWAL SX DENIES SUICIDAL IDEATION DENIES HOMOCIDAL IDEATION NO SELF DESTRUCTIVE BEHAVIOR , DISREGARD [facility] T[facility] ALERT ORIENTED X 3 NO ACUTE DISTRESS AFTERCARE RETURN TO [facility] WAITING FOR [facility] VACANCY PATIENT STATED THAT HE FEEL SAFE TO LEAVE THE DETOX FACILITY TODAY THAT "THERE IS A PLAN FOR" HIM - Physical Exam Results Vital Signs: Vital Signs Temperature 97.9 F 10/09/17 09:55 Pulse Rate 79 10/09/17 09:55 Respiratory Rate 16 10/09/17 09:55 Blood Pressure 147/80 10/09/17 09:55 O2 Sat by Pulse Oximetry (%) Pertinent Admission Physical Exam Findings: ALCOHOL WITHDRAWAL SX Vital Signs Temperature 97.9 F 10/09/17 09:55 Pulse Rate 79 10/09/17 09:55 Respiratory Rate 16 10/09/17 09:55 Blood Pressure 147/80 10/09/17 09:55 O2 Sat by Pulse Oximetry (%) Laboratory Last Values WBC 4.9 K/mm3 (4.0-10.0) 10/04/17 07:30 RBC 4.34 M/mm3 (4.00-5.60) 10/04/17 07:30 Hgb 12.9 GM/dL (11.7-16.9) 10/04/17 07:30 Hct 38.8 % (35.4-49) 10/04/17 07:30 MCV 89.4 fl (80-96) 10/04/17 07:30 MCH 29.7 pg (25.7-33.7) 10/04/17 07:30 MCHC 33.2 g/dl (32.0-35.9) 10/04/17 07:30 RDW 14.4 % (11.9-15.9) 10/04/17 07:30 Plt Count 156 K/MM3 (134-434) 10/04/17 07:30 MPV 8.6 fl (7.5-11.1) 10/04/17 07:30 Sodium 142 mmol/L (136-145) 10/04/17 07:30 Potassium 3.5 mmol/L (3.5-5.1) 10/04/17 07:30 Chloride 104 mmol/L (98-107) 10/04/17 07:30 Carbon Dioxide 28 mmol/L (21-32) 10/04/17 07:30 Anion Gap 10 MMOL/L (8-16) 10/04/17 07:30 BUN 17 mg/dL (7-18) 10/04/17 07:30 Creatinine 0.9 mg/dL (0.7-1.3) 10/04/17 07:30 Creat Clearance w eGFR > 60 (>60) 10/04/17 07:30 Random Glucose 87 mg/dL (74-106) 10/04/17 07:30 Calcium 9.0 mg/dL (8.5-10.1) 10/04/17 07:30 Total Bilirubin 0.8 mg/dL (0.2-1.0) 10/04/17 07:30 AST 49 U/L (15-37) H D 10/04/17 07:30 ALT 62 U/L (12-78) 10/04/17 07:30 Alkaline Phosphatase 52 U/L (45-117) 10/04/17 07:30 Total Protein 6.1 g/dl (6.4-8.2) L 10/04/17 07:30 Albumin 3.6 g/dl (3.4-5.0) 10/04/17 07:30 Urine Color Yellow 10/03/17 Unknown Urine Appearance Clear 10/03/17 Unknown Urine pH 6.0 (5.0-8.0) 10/03/17 Unknown Ur Specific [place] 1.020 (1.001-1.035) 10/03/17 Unknown Urine Protein Negative (NEGATIVE) 10/03/17 Unknown Urine Glucose (UA) Negative (NEGATIVE) 10/03/17 Unknown Urine Ketones Negative (NEGATIVE) 10/03/17 Unknown Urine Blood Negative (NEGATIVE) 10/03/17 Unknown Urine Nitrite Negative (NEGATIVE) 10/03/17 Unknown Urine Bilirubin Negative (<2.0 mg/dL) 10/03/17 Unknown Urine Urobilinogen 2.0 mg/dL (0.2-1.0) 10/03/17 Unknown Ur Leukocyte Esterase Negative (NEGATIVE) 10/03/17 Unknown RPR Titer Reactive 1:1 (NONREACTIVE) H 10/04/17 07:30 T.pallidum Ab (MHA) Previously reactive (NONREACTIVE) 10/04/17 07:30 LAB NOTED - Treatment Hospital Course: Detox Protocol Followed, Detoxed Safely, Responded well, Discharged Condition Good, Rehab Referral Accepted Patient has Accepted a Rehab Referral to: [facility] [place] [facility] - Medication Discharge Medications: Ambulatory Orders Zolpidem Tartrate [Ambien] 10 mg PO HS #14 tablet MDD 10 07/06/16 Mirtazapine [Remeron -] 30 mg PO DAILY 04/29/17 - Diagnosis (1) Alcohol dependence with uncomplicated withdrawal Status: Acute (2) Depression Status: Suspected Qualifiers: Depression Type: dysthymia Qualified Code(s): F34.1 - Dysthymic disorder (3) Syphilis Status: Chronic - AMA Did Patient Leave Against Medical Advice: No
== END 2017-10-09 11:00 | disposition home or self-care (01) | DRG 775 ==
LOC: YASAS 18:09 → Y6N 19:23
PROC: HZ2ZZZZ Detoxification Services for Substance Abuse Treatment (ICD-10-PCS; principal; 2017-10-03)
DX: F10.230 Alcohol dependence with withdrawal, uncomplicated (principal); F13.20 Sedative, hypnotic or anxiolytic dependence, uncomplicated; F15.20 Other stimulant dependence, uncomplicated; F34.1 Dysthymic disorder; F19.24 Other psychoactive substance dependence with psychoactive substance-induced mood disorder; F10.24 Alcohol dependence with alcohol-induced mood disorder; F43.23 Adjustment disorder with mixed anxiety and depressed mood; A53.9 Syphilis, unspecified; G47.00 Insomnia, unspecified; G25.1 Drug-induced tremor; K90.0 Celiac disease; Z86.19 Personal history of other infectious and parasitic diseases; Z88.0 Allergy status to penicillin; Z59.0 Homelessness
CPT/HCPCS: 36415; 80053; 81003; 85027; 86593; 86780; 93005; 93010; J0475

== ENCOUNTER 2018-12-12 14:41 | Inpatient (IN) | payer OTHER ==
[2018-12-12 18:45] VITALS: BMI 34.5
--- NOTE | 2018-12-12 19:18 | HP ---
CIWA Score Nausea/Vomitin-Int. Nausea w/Dry Heave Muscle Tremors: 6 Anxiety: 4-Mod. Anxious/Guarded Agitation: 0-Normal Activity Paroxysmal Sweats: 3 Orientation: 0-Oriented Tacttile Disturbances: 1-Very Mild Itch/Numbness Auditory Disturbances: 1-Very Mild Visual Disturbances: 1-Very Mild Sensitivity Headache: 2-Mild CIWA-Ar Total Score: 22 - Admission Criteria OASAS Guidelines: Admission for Medically Managed Detox: Requires at least one of the followin. CIWA greater than 12 2. Seizures within the past 24 hours 3. Delirium tremens within the past 24 hours 4. Hallucinations within the past 24 hours 5. Acute intervention needed for co occurring medical disorder 6. Acute intervention needed for co occurring psychiatric disorder 7. Severe withdrawal that cannot be handled at a lower level of care (continued vomiting, continued diarrhea, abnormal vital signs) requiring intravenous medication and/or fluids 8. Patient presents the following: CIWA greater than 12 Admission Criteria Met: Admission criteria met Admitting History and Physical - Admission Chief Complaint: alcohol withdrawal sx History of Present Illness: 33 yo male, homeless, with hx of GHB, alcohol dependence, is here seeking detox. As per patient he was seen at [facility] emergency department earlier today d/t withdrawal and was referred to this facility. Reports hx of alcohol related withdrawal seizure and DTS, last seizure three weeks ago. Reports hx of frequent ETOH syncope last episode last night. Patient at this time denies suicidal / homicidal ideation or visual / auditory hallucinations. Longest period of sobriety four months, but keeps relapsing, last detox three weeks at at [facility]. Reports psych admission 2013 for auditory hallucinations after taking GHB. PMHX: Celiac disease, mild Liver Cirrhosis. Psych: anxiety. Reports multiple admissions to detox, unable to recall the last episode or location. History Source: Patient Limitations to Obtaining History: No Limitations - Smoking History Smoking history: Never smoked Have you smoked in the past 12 months: No Aproximately how many cigarettes per day: 0 - Alcohol/Substance Use Hx Alcohol Use: Yes Admission ROS S - HPI Allergies/Adverse Reactions: Allergies Allergy/AdvReac Type Severity Reaction Status Date / Time mushroom Allergy Severe Swelling Verified 12/12/18 18:18 amoxicillin AdvReac abdominal Verified 12/12/18 18:18 pain Exam Limitations: No Limitations - Ebola screening Have you traveled outside of the country in the last 21 days: No Have you had contact with anyone from an Ebola affected area: No - Review of Systems Constitutional: Chills, Loss of Appetite, Changes in sleep, Unintentional Wgt. Loss EENT: reports: No Symptoms Reported Respiratory: reports: No Symptoms reported Cardiac: reports: See HPI GI: reports: Diarrhea, Nausea, Poor Appetite, Poor Fluid Intake, Vomiting, Abdominal cramping : reports: No Symptoms Reported Musculoskeletal: reports: No Symptoms Reported Neuro: reports: Headache, Tingling, Tremors Endocrine: reports: No Symptoms Reported Hematology: reports: No Symptoms Reported Psychiatric: reports: Orientated x3, Anxious Other Systems: Reviewed and Negative Patient History - Patient Medical History Hx Anemia: No Hx Asthma: No Hx Chronic Obstructive Pulmonary Disease (COPD): No Hx Cancer: No Hx Cardiac Disorders: No Hx Congestive Heart Failure: No Hx Hypertension: No Hx Hypercholesterolemia: No Hx Pacemaker: No HX Cerebrovascular Accident: No Hx Seizures: Yes (Alcohol induced, three weeks ago) Hx Dementia: No Hx Diabetes: No Hx Gastrointestinal Disorders: Yes (acid reflux, celiac disease ) Hx Liver Disease: No Hx Genitourinary Disorders: No Hx Sexually Transmitted Disorders: Yes (syphilis) Hx Renal Disease (ESRD): No Hx Thyroid Disease: No Hx Human Immunodeficiency Virus (HIV): No (last tested 03/2017) Hx Hepatitis C: Yes (Recently diagnosed, to start tx) Hx Depression: Yes Hx Suicide Attempt: No (denies current idea/attempt) Hx Bipolar Disorder: No Hx Schizophrenia: No - Patient Surgical History Past Surgical History: Yes Hx Neurologic Surgery: No Hx Cataract Extraction: No Hx Cardiac Surgery: No Hx Lung Surgery: No Hx Breast Surgery: No Hx Breast Biopsy: No Hx Abdominal Surgery: No Hx Appendectomy: No Hx Cholecystectomy: No Hx Genitourinary Surgery: No Hx Section: No Hx Orthopedic Surgery: Yes (dislocation, left wrist at age 20) Hx Hysterectomy: No Anesthesia Reaction: No - PPD History Previous Implant?: No Documented Results: Negative w/proof Date: 05/01/17 PPD to be Administered?: Yes - Smoking Cessation Smoking history: Never smoked Have you smoked in the past 12 months: No Aproximately how many cigarettes per day: 0 Cigars Per Day: 0 Hx Chewing Tobacco Use: No Initiated information on smoking cessation: Yes 'Breaking Loose' booklet given: 12/12/18 - Substance & Tx. History Hx Alcohol Use: Yes Hx Substance Use: Yes Substance Use Type: Alcohol Hx Substance Use Treatment: Yes ([facility] three weeks ago) - Substances abused Alcohol Substance route: Oral Frequency: Daily Amount used: $20 Age of first use: 19 Date of last use: 12/12/18 Other Substance route: Oral Frequency: 3-6 times per week Amount used: $0 Age of first use: 25 Date of last use: 12/12/18 Admission Physical Exam [facility] - Vital Signs Vital Signs: Vital Signs - 24 hr 12/12/18 18:31 Temperature 98.4 F Pulse Rate 75 Respiratory 18 Rate Blood Pressure 140/78 - Physical General Appearance: Yes: Disheveled, Mild Distress, Tremorous, Sweating, Anxious HEENTM: Yes: EOMI, Hearing grossly Normal, Normal ENT Inspection, Normocephalic , Normal Voice, REYNOLD, Pharynx Normal, Tm's normal, Other (missing teeth) Respiratory: Yes: Chest Non-Tender, Lungs Clear, Normal Breath Sounds, No Respiratory Distress, No Accessory Muscle Use Neck: Yes: Within Normal Limits Breast: Yes: Breast Exam Deferred Cardiology: Yes: Regular Rhythm Abdominal: Yes: Normal Bowel Sounds, Non Tender, Soft, Protuberent Genitourinary: Yes: Within Normal Limits Back: Yes: Normal Inspection Musculoskeletal: Yes: full range of Motion, Gait Steady, Pelvis Stable Extremities: Yes: Normal Capillary Refill, Normal Range of Motion Neurological: Yes: hay baler II-XII NML intact, Fully Oriented, Alert, Motor Strength 5/5, Normal Response, Depressed Affect Integumentary: Yes: Normal Color, Warm, Diaphoresis Lymphatic: Yes: Within Normal Limits - Diagnostic (1) Alcohol dependence with uncomplicated withdrawal Current Visit: Yes Status: Acute Comment: . (2) Gamma-hydroxybutyrate (GHB) use disorder, moderate, dependence Current Visit: Yes Status: Acute Comment: . (3) History of syphilis Current Visit: Yes Status: Chronic (4) Tremor due to drug withdrawal Current Visit: Yes Status: Acute (5) Celiac disease Current Visit: Yes Status: Chronic Cleared for Admission [facility] - Detox or Rehab [facility] Level of Care: Medically Managed Detox Regimen/Protocol: Librium Breathalyzer - Breathalyzer Breathalyzer: 0 Urine Drug Screen - Test Device Lot number: [id number] Expiration date: 08/04/20 - Control Is test valid?: Yes - Results Drug screen NEGATIVE: No Urine drug screen results: BZO-Benzodiazepines Inpatient Rehab Admission - Rehab Decision to Admit Inpatient rehab admission?: No
[2018-12-12] MEDS ORDERED: BISMUTH SUBSALICYLATE 524 MG/30 ML UD PO PRN (19:22)
[2018-12-12] MEDS ORDERED: MELATONIN 5 MG TABLETS PO PRN (19:22)
[2018-12-12] MEDS ORDERED: MAGNESIUM CITRATE 300 ML BOTTLE PO PRN (19:22)
[2018-12-12] MEDS ORDERED: MAGNESIUM HYDROX 2400MG/30ML ORAL SUSPENSION 30 ML CUP PO PRN (19:22)
[2018-12-12] MEDS ORDERED: IBUPROFEN 400 MG TABLET (FP) PO PRN (19:22)
[2018-12-12] MEDS ORDERED: MENTHOL/PHENOL 1 EACH UD MM PRN (19:22)
[2018-12-12] MEDS ORDERED: MAG HYDROX/AL HYDROX/SIMETH 30 ML UNIT-DOSE CUP PO PRN (19:22)
[2018-12-12] MEDS ORDERED: ACETAMINOPHEN 325 MG TABLET (FP) PO PRN ×2 (19:22)
[2018-12-12] MEDS: chlordiazePOXIDE HCL 25 MG CAPSULE PO PRN (20:47)
[2018-12-12] MEDS: THIAMINE HCL 100 MG TABLET (FP) PO SCH (22:43)
[2018-12-12] MEDS: chlordiazePOXIDE HCL 25 MG CAPSULE PO SCH (22:43)
[2018-12-12] MEDS: GABAPENTIN 300 MG CAPSULE (FP) PO SCH (22:55)
[2018-12-13] MEDS: chlordiazePOXIDE HCL 25 MG CAPSULE PO SCH ×4 (05:11→22:19)
[2018-12-13] MEDS: GABAPENTIN 300 MG CAPSULE (FP) PO SCH ×3 (05:13→22:19)
[2018-12-13 10:07] LABS: HEMATOCRIT 37.8 % (35.4-49); HEMOGLOBIN 12.8 GM/dL (11.7-16.9); MCHC 33.8 g/dl (32.0-35.9); MEAN CELL VOLUME 88.8 fl (80-96); MEAN PLT VOLUME 8.9 fl (7.5-11.1); PLATELET COUNT 194 K/MM3 (134-434); RBC 4.25 M/mm3 (4.00-5.60); RDW 14.7 % (11.9-15.9); WHITE BLOOD COUNT 4.4 K/mm3 (4.0-10.0)
[2018-12-13 10:10] LABS: ALBUMIN 3.8 g/dl (3.4-5.0); BILIRUBIN,TOTAL 0.4 mg/dL (0.2-1); BLOOD UREA NITROGEN 13.7 mg/dL (7-18); POTASSIUM 3.8 mmol/L (3.5-5.1)
[2018-12-13] MEDS: PRENATAL VITAMINS W/ FOLIC ACID TABLET (FP) PO SCH (10:30)
--- NOTE | 2018-12-13 10:37 | PN ---
S CIWA - CIWA Score Nausea/Vomitin-No Nausea/No Vomiting Muscle Tremors: 3 Anxiety: 3 Agitation: 3 Paroxysmal Sweats: 3 Orientation: 0-Oriented Tacttile Disturbances: 0-None Auditory Disturbances: 0-None Visual Disturbances: 0-None Headache: 1-Very Mild CIWA-Ar Total Score: 13 BHS Progress Note (SOAP) Subjective: sweats chills irritable agitation shakes interrupted sleep Objective: 12/13/18 10:37 Vital Signs Temperature 97.2 F L 12/13/18 09:35 Pulse Rate 69 12/13/18 09:35 Respiratory Rate 18 12/13/18 09:35 Blood Pressure 134/66 12/13/18 09:35 O2 Sat by Pulse Oximetry (%) Laboratory Tests 12/13/18 08:00 Sodium 139 Potassium 3.8 Chloride 106 Carbon Dioxide 29 Anion Gap 4 L BUN 13.7 Creatinine 1.0 Est GFR (CKD-EPI)AfAm 113.31 Est GFR (CKD-EPI)NonAf 97.76 Random Glucose 84 Calcium 9.0 Total Bilirubin 0.4 AST 22 ALT 40 Alkaline Phosphatase 49 Total Protein 6.0 L Albumin 3.8 rest of labs pending aaox3 ambulating no acute distress Assessment: 12/13/18 10:38 withdrawal sx Plan: continue detox increase fluids pending labs
--- NOTE | 2018-12-13 10:39 | CONSULT ---
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 Refer to addiction counselor's summary for further information Medical History: Significant cirrhosis, celiac disease, GERD, history of alcohol related seizure, tratment for syphilis and orthosurgery for dislocation left wrist at 20 Psychiatric History: Patient is known to this facility where he has had 3 previous admissions. Reports that he has been suffering from insomnia since age 12 but started seeing a sleep specialist in 2012. Reports that he is still seeing a sleep specialist and he is currently prescribed Ambien 10 mg/hs and Remeron 30-60 mg/hs prn. Denies previous psychiatric hospitalization or suicidal attempt. However, reports reports a CPEP visit at [place] in September 2017. Denies that he was there for a suicide attempt via alcohol and pills as reported during his most recent admission to this facility in September 2017. He said that he was drinking and using GHB and woke up at in the hospital. At present, reports feeling depressed, anxious and sleeping poorly Physical/Sexual Abuse/Trauma History: Denies history of abuse as a child and DV relationship as an adult. No service Additional Comment: Denies criminal history Mental Status Exam - Mental Status Exam Alert and Oriented to: Time, Place, Person Cognitive Function: Fair Patient Appearance: Well Groomed Mood: Depressed, Anxious Affect: Constricted Patient Behavior: Cooperative Voice Loudness: Normal Thought Process: Intact, Goal Oriented Thought Disorder: Not Present Hallucinations: Denies Suicidal Ideation: Denies Homicidal Ideation: Denies Insight/Judgement: Poor Sleep: Poorly Appetite: Poor Muscle strength/Tone: Normal Gait/Station: Normal Psychiatric Findings - Problem List ([place] 1, 2,3) (1) Substance induced mood disorder Current Visit: Yes Status: Acute (2) Substance-induced sleep disorder Current Visit: Yes Status: Acute (3) Alcohol dependence with uncomplicated withdrawal Current Visit: Yes Status: Acute Comment: . (4) Gamma-hydroxybutyrate (GHB) use disorder, moderate, dependence Current Visit: Yes Status: Acute Comment: . (5) Celiac disease Current Visit: Yes Status: Chronic (6) Syphilis Current Visit: No Status: Resolved (7) History of secondary syphilis of skin Current Visit: No Status: Resolved (8) Alcohol related seizure Current Visit: Yes Status: Resolved (9) Cirrhosis of liver Current Visit: Yes Status: Chronic (10) GERD (gastroesophageal reflux disease) Current Visit: Yes Status: Chronic - Initial Treatment Plan Initial Treatment Plan: 1) Start Remeron 45 mg po HS and Belsomra 10 mg po HS prn for insomnia. 2) Continue inpatient detoxification
[2018-12-13 11:48] LABS: RPR REACTIVE 1:1 (NONREACTIVE)
[2018-12-13 11:49] LABS: TREPONEMA ANTIBODY PREVIOUSLY REACTIVE (NONREACTIVE)
[2018-12-13] MEDS: hydrOXYzine PAMOATE 50 MG CAPSULE (FP) PO PRN (17:25)
[2018-12-13] MEDS: chlordiazePOXIDE HCL 25 MG CAPSULE PO PRN (19:54)
[2018-12-13] MEDS: MIRTAZAPINE 15 MG TABLET (FP) PO SCH (22:19)
[2018-12-13] MEDS: THIAMINE HCL 100 MG TABLET (FP) PO SCH (22:19)
[2018-12-13] MEDS: SUVOREXANT 10 MG TABLET PO PRN (22:20)
[2018-12-14] MEDS: chlordiazePOXIDE HCL 25 MG CAPSULE PO SCH ×4 (05:36→22:06)
[2018-12-14] MEDS: GABAPENTIN 300 MG CAPSULE (FP) PO SCH ×3 (06:36→22:07)
[2018-12-14] MEDS: hydrOXYzine PAMOATE 50 MG CAPSULE (FP) PO PRN (06:42)
[2018-12-14] MEDS: METHOCARBAMOL 500 MG TABLET PO PRN (10:27)
[2018-12-14] MEDS: PRENATAL VITAMINS W/ FOLIC ACID TABLET (FP) PO SCH (10:28)
[2018-12-14] MEDS ORDERED: FLU VACCINE QUAD 60 MCG/0.5 ML (MDV 19-20) IM ONE (11:20)
--- NOTE | 2018-12-14 11:23 | PN ---
S CIWA - CIWA Score Nausea/Vomitin-No Nausea/No Vomiting Muscle Tremors: 3 Anxiety: 3 Agitation: 3 Paroxysmal Sweats: 2 Orientation: 0-Oriented Tacttile Disturbances: 0-None Auditory Disturbances: 0-None Visual Disturbances: 0-None Headache: 0-None Present CIWA-Ar Total Score: 11 BHS Progress Note (SOAP) Subjective: sweats shakes restless cramping to legs I want the flu shot Objective: 12/14/18 11:22 Vital Signs Temperature 97.7 F 12/14/18 09:28 Pulse Rate 85 12/14/18 09:28 Respiratory Rate 16 12/14/18 09:28 Blood Pressure 131/69 12/14/18 09:28 O2 Sat by Pulse Oximetry (%) Laboratory Tests 12/13/18 12/13/18 12/13/18 08:00 08:00 08:00 WBC 4.4 RBC 4.25 Hgb 12.8 Hct 37.8 MCV 88.8 MCH 30.0 MCHC 33.8 RDW 14.7 Plt Count 194 D MPV 8.9 Sodium 139 Potassium 3.8 Chloride 106 Carbon Dioxide 29 Anion Gap 4 L BUN 13.7 Creatinine 1.0 Est GFR (CKD-EPI)AfAm 113.31 Est GFR (CKD-EPI)NonAf 97.76 Random Glucose 84 Calcium 9.0 Total Bilirubin 0.4 AST 22 ALT 40 Alkaline Phosphatase 49 Total Protein 6.0 L Albumin 3.8 RPR Titer Reactive 1:1 H T.pallidum Ab (MHA) Previously reactive labs noted aaox3 ambulating no acute distress Assessment: 12/14/18 11:22 withdrawals Plan: continue detox roboxin prn increase fluids flu vaccine x 1 ordered
[2018-12-14] MEDS ORDERED: ONDANSETRON *ODT* 4 MG TABLET SL PRN (11:27)
[2018-12-14] MEDS: chlordiazePOXIDE HCL 25 MG CAPSULE PO PRN ×2 (12:42→20:04)
[2018-12-14] MEDS: MIRTAZAPINE 15 MG TABLET (FP) PO SCH (22:07)
[2018-12-14] MEDS: THIAMINE HCL 100 MG TABLET (FP) PO SCH (22:07)
[2018-12-14] MEDS: SUVOREXANT 10 MG TABLET PO PRN (22:08)
[2018-12-15] MEDS: chlordiazePOXIDE HCL 10 MG CAPSULE PO SCH ×4 (05:00→22:25)
[2018-12-15] MEDS: GABAPENTIN 300 MG CAPSULE (FP) PO SCH ×4 (06:30→22:24)
[2018-12-15] MEDS: hydrOXYzine PAMOATE 50 MG CAPSULE (FP) PO PRN (06:33)
[2018-12-15] MEDS: METHOCARBAMOL 500 MG TABLET PO PRN (06:33)
[2018-12-15] MEDS: chlordiazePOXIDE HCL 10 MG CAPSULE PO PRN ×3 (09:08→20:10)
[2018-12-15] MEDS: PRENATAL VITAMINS W/ FOLIC ACID TABLET (FP) PO SCH (10:21)
--- NOTE | 2018-12-15 10:54 | EKG ---
Test Reason : Blood Pressure : / mmHG Vent. Rate : 088 BPM Atrial Rate : 088 BPM P-R Int : 146 ms QRS Dur : 090 ms QT Int : 364 ms P-R-T Axes : 026 003 -07 degrees QTc Int : 440 ms POOR DATA QUALITY, INTERPRETATION MAY BE ADVERSELY AFFECTED NORMAL SINUS RHYTHM NORMAL ECG WHEN COMPARED WITH ECG OF 03-OCT-2017 19:32, NO SIGNIFICANT CHANGE WAS FOUND Confirmed by ABRAN GUTIERRES, MAGGY ([id number]) on 12/15/2018 10:54:00 AM Referred By: Confirmed By:MAGGY OSULLIVAN MD
--- NOTE | 2018-12-15 11:49 | PN ---
[facility] CIWA - CIWA Score Nausea/Vomitin-No Nausea/No Vomiting Muscle Tremors: 3 Anxiety: 2 Agitation: 2 Paroxysmal Sweats: 2 Orientation: 0-Oriented Tacttile Disturbances: 0-None Auditory Disturbances: 0-None Visual Disturbances: 0-None Headache: 0-None Present CIWA-Ar Total Score: 9 BHS Progress Note (SOAP) Subjective: Patient refused to speak with insurance underwriter Got agitated when he saw insurance underwriter at nursing station when he came out for his medication Objective: 12/15/18 11:47 Last Vital Signs Temp Pulse Resp BP Pulse Ox 97.9 F 77 18 131/92 12/15/18 09:30 12/15/18 09:30 12/15/18 09:30 12/15/18 09:30 Elevated b/p: denies htn, on propranol Laboratory Tests 12/13/18 12/13/18 12/13/18 08:00 08:00 08:00 WBC 4.4 RBC 4.25 Hgb 12.8 Hct 37.8 MCV 88.8 MCH 30.0 MCHC 33.8 RDW 14.7 Plt Count 194 D MPV 8.9 Sodium 139 Potassium 3.8 Chloride 106 Carbon Dioxide 29 Anion Gap 4 L BUN 13.7 Creatinine 1.0 Est GFR (CKD-EPI)AfAm 113.31 Est GFR (CKD-EPI)NonAf 97.76 Random Glucose 84 Calcium 9.0 Total Bilirubin 0.4 AST 22 ALT 40 Alkaline Phosphatase 49 Total Protein 6.0 L Albumin 3.8 RPR Titer Reactive 1:1 H T.pallidum Ab (MHA) Previously reactive Labs reviewed Assessment: 12/15/18 11:49 Withdrawal sxs Noted with elevated b/p Plan: Continue detox Encouraged PO water intake HTN: continue propranolol, monitor b/p
[2018-12-15] MEDS: THIAMINE HCL 100 MG TABLET (FP) PO SCH (22:24)
[2018-12-15] MEDS: MIRTAZAPINE 15 MG TABLET (FP) PO SCH (22:24)
[2018-12-15] MEDS: SUVOREXANT 10 MG TABLET PO PRN (22:25)
[2018-12-16] MEDS: GABAPENTIN 300 MG CAPSULE (FP) PO SCH ×3 (06:05→22:57)
[2018-12-16] MEDS: chlordiazePOXIDE HCL 10 MG CAPSULE PO SCH ×2 (06:06→16:45)
[2018-12-16] MEDS: PRENATAL VITAMINS W/ FOLIC ACID TABLET (FP) PO SCH (10:51)
[2018-12-16] MEDS: hydrOXYzine PAMOATE 50 MG CAPSULE (FP) PO PRN (10:54)
--- NOTE | 2018-12-16 11:21 | PN ---
S CIWA - CIWA Score Nausea/Vomitin-Mild Nausea/No Vomiting Muscle Tremors: 1-None Visible, but [place] Anxiety: 1-Mildly Anxious Agitation: 1-Slight > Activity Paroxysmal Sweats: No Perspiration Orientation: 0-Oriented Tacttile Disturbances: 1-Very Mild Itch/Numbness Auditory Disturbances: 0-None Visual Disturbances: 0-None Headache: 1-Very Mild CIWA-Ar Total Score: 6 BHS Progress Note (SOAP) Subjective: alert,irritable,anxious,interrupted sleep,pain in the body Objective: 12/16/18 11:18 Vital Signs Temperature 97.4 F L 12/16/18 09:38 Pulse Rate 66 12/16/18 09:38 Respiratory Rate 18 12/16/18 09:38 Blood Pressure 113/65 12/16/18 09:38 O2 Sat by Pulse Oximetry (%) Assessment: 12/16/18 11:20 withdrawal symptom Plan: continue detox,librium regimen,discharge in am
[2018-12-16] MEDS ORDERED: SUVOREXANT 10 MG TABLET PO PRN (22:48)
[2018-12-16] MEDS ORDERED: hydrOXYzine PAMOATE 50 MG CAPSULE (FP) PO PRN (22:51)
[2018-12-16] MEDS: MIRTAZAPINE 15 MG TABLET (FP) PO SCH (22:57)
[2018-12-16] MEDS: THIAMINE HCL 100 MG TABLET (FP) PO SCH (22:57)
[2018-12-17] MEDS ORDERED: chlordiazePOXIDE HCL 10 MG CAPSULE PO ONE (05:00)
[2018-12-17 06:10] VITALS: BP 112/72; PULSE 54; TEMP 97.3
[2018-12-17] MEDS: GABAPENTIN 300 MG CAPSULE (FP) PO SCH (06:33)
--- NOTE | 2018-12-17 09:01 | DS ---
[facility] Detox Discharge Summary Admission Date: 12/12/18 Discharge Date: 12/17/18 - History Present History: Alcohol Dependence, Cocaine Dependence - Physical Exam Results Vital Signs: Vital Signs Temperature 97.3 F L 12/17/18 06:00 Pulse Rate 54 L 12/17/18 06:00 Respiratory Rate 18 12/17/18 06:00 Blood Pressure 112/72 12/17/18 06:00 O2 Sat by Pulse Oximetry (%) Pertinent Admission Physical Exam Findings: pt arrived in withdrawals Vital Signs Temperature 97.3 F L 12/17/18 06:00 Pulse Rate 54 L 12/17/18 06:00 Respiratory Rate 18 12/17/18 06:00 Blood Pressure 112/72 12/17/18 06:00 O2 Sat by Pulse Oximetry (%) Laboratory Tests 12/13/18 12/13/18 12/13/18 08:00 08:00 08:00 WBC 4.4 RBC 4.25 Hgb 12.8 Hct 37.8 MCV 88.8 MCH 30.0 MCHC 33.8 RDW 14.7 Plt Count 194 D MPV 8.9 Sodium 139 Potassium 3.8 Chloride 106 Carbon Dioxide 29 Anion Gap 4 L BUN 13.7 Creatinine 1.0 Est GFR (CKD-EPI)AfAm 113.31 Est GFR (CKD-EPI)NonAf 97.76 Random Glucose 84 Calcium 9.0 Total Bilirubin 0.4 AST 22 ALT 40 Alkaline Phosphatase 49 Total Protein 6.0 L Albumin 3.8 RPR Titer Reactive 1:1 H T.pallidum Ab (MHA) Previously reactive today pt is aaox3 ambulating no acute distress no s/s of withdrawals - Treatment Hospital Course: Detox Protocol Followed, Detoxed Safely, Responded well, Discharged Condition Good, Rehab Referral Accepted - Medication Discharge Medications: Ambulatory Orders Zolpidem Tartrate [Ambien] 10 mg PO HS #14 tablet MDD 10 07/06/16 Mirtazapine [Remeron -] 30 mg PO DAILY 04/29/17 Gabapentin [Neurontin] 600 mg PO TID 12/12/18 Propranolol HCl 20 mg PO DAILY 12/12/18 - Diagnosis (1) Alcohol dependence with uncomplicated withdrawal Current Visit: Yes Status: Chronic (2) Gamma-hydroxybutyrate (GHB) use disorder, moderate, dependence Current Visit: Yes Status: Acute (3) Substance induced mood disorder Current Visit: Yes Status: Acute (4) Substance-induced sleep disorder Current Visit: Yes Status: Acute (5) Tremor due to drug withdrawal Current Visit: Yes Status: Acute (6) Celiac disease Current Visit: Yes Status: Chronic (7) Cirrhosis of liver Current Visit: Yes Status: Chronic Qualifiers: Ascites presence: unspecified (8) GERD (gastroesophageal reflux disease) Current Visit: Yes Status: Chronic Qualifiers: Esophagitis presence: without esophagitis Qualified Code(s): K21.9 - Gastro -esophageal reflux disease without esophagitis (9) History of syphilis Current Visit: Yes Status: Resolved (10) Alcohol related seizure Current Visit: Yes Status: Resolved (11) Adjustment disorder with mixed anxiety and depressed mood Current Visit: No Status: Acute (12) Alcohol-induced anxiety disorder Current Visit: No Status: Acute (13) 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 Current Visit: No Status: Acute (14) Amphetamine dependence, episodic Current Visit: Yes Status: Chronic (15) Cocaine dependence Current Visit: Yes Status: Chronic Qualifiers: Substance use status: uncomplicated Qualified Code(s): F14.20 - Cocaine dependence, uncomplicated (16) Drug-induced mood disorder Current Visit: No Status: Acute (17) Marijuana dependence Current Visit: Yes Status: Chronic (18) Substance induced mood disorder Current Visit: No Status: Acute (19) Insomnia Current Visit: No Status: Chronic Qualifiers: Insomnia type: unspecified Qualified Code(s): G47.00 - Insomnia, unspecified (20) Depression Current Visit: No Status: Suspected Qualifiers: Depression Type: dysthymia Qualified Code(s): F34.1 - Dysthymic disorder (21) Depressive disorder Current Visit: No Status: Suspected (22) History of secondary syphilis of skin Current Visit: No Status: Resolved - AMA Did Patient Leave Against Medical Advice: No
--- NOTE | 2018-12-17 09:38 | PN ---
[facility]ITT[facility] Progress Note Note: Patient requests to see check writer in order to have Belsomra mentioned in his medical record in order to have it prescribed at [facility]
[2018-12-17] MEDS: PRENATAL VITAMINS W/ FOLIC ACID TABLET (FP) PO SCH (10:29)
== END 2018-12-17 10:20 | disposition home or self-care (01) | DRG 774 ==
LOC: YASAS 14:41 → Y6N 19:33
PROVIDERS: ADMIT Allergy & Immunology; ATTEND Allergy & Immunology
PROC: HZ2ZZZZ Detoxification Services for Substance Abuse Treatment (ICD-10-PCS; principal; 2018-12-12)
DX: F10.230 Alcohol dependence with withdrawal, uncomplicated (principal); F13.20 Sedative, hypnotic or anxiolytic dependence, uncomplicated; F14.20 Cocaine dependence, uncomplicated; F15.20 Other stimulant dependence, uncomplicated; F12.20 Cannabis dependence, uncomplicated; F19.24 Other psychoactive substance dependence with psychoactive substance-induced mood disorder; F19.282 Other psychoactive substance dependence with psychoactive substance-induced sleep disorder; F10.24 Alcohol dependence with alcohol-induced mood disorder; K90.0 Celiac disease; F10.280 Alcohol dependence with alcohol-induced anxiety disorder; K21.9 Gastro-esophageal reflux disease without esophagitis; Z86.19 Personal history of other infectious and parasitic diseases; R56.9 Unspecified convulsions; Z88.0 Allergy status to penicillin; Z91.018 Allergy to other foods; Z59.0 Homelessness
CPT/HCPCS: 36415; 80053; 85027; 86593; 86780; 93005; 93010; Q2036

== ENCOUNTER 2022-08-19 14:53 | Inpatient (IN) | payer OTHER ==
[2022-08-19 15:22] VITALS: BMI 30.9
[2022-08-19] MEDS ORDERED: BENZONATATE 200 MG CAPSULE PO PRN (16:51)
[2022-08-19] MEDS ORDERED: guaiFENesin 600 MG TABLET.ER (FP) PO PRN (16:51)
[2022-08-19] MEDS ORDERED: hydrOXYzine PAMOATE 25 MG CAPSULE (FP) PO PRN (16:51)
[2022-08-19] MEDS ORDERED: NALOXONE HCL (KLOXXADO) 8 MG SPRAY NS PRN (16:51)
[2022-08-19] MEDS ORDERED: chlordiazePOXIDE HCL 25 MG CAPSULE PO PRN (16:51)
[2022-08-19] MEDS ORDERED: ACETAMINOPHEN 325 MG TABLET (FP) PO PRN (16:51)
[2022-08-19] MEDS ORDERED: IBUPROFEN 400 MG TABLET (FP) PO PRN (16:51)
[2022-08-19] MEDS ORDERED: POLYETHYLENE GLYCOL (HEALTHYLAX) 3350 17 GM PACKET PO PRN (16:51)
[2022-08-19] MEDS ORDERED: MAG HYDROX/AL HYDROX/SIMETH 30 ML UNIT-DOSE CUP PO PRN (16:51)
[2022-08-19] MEDS ORDERED: IBUPROFEN 600 MG TABLET (FP) PO PRN (16:51)
[2022-08-19] MEDS ORDERED: DICYCLOMINE HCL 10 MG CAPSULE PO PRN (16:51)
[2022-08-19] MEDS ORDERED: MAGNESIUM HYDROX 2400MG/30ML ORAL SUSPENSION 30 ML CUP PO PRN (16:51)
[2022-08-19] MEDS ORDERED: ONDANSETRON *ODT* 4 MG TABLET SL PRN (16:51)
[2022-08-19] MEDS ORDERED: BENZOCAINE/MENTHOL (CHLORASEPTIC ) LOZENGE MM PRN (16:51)
[2022-08-19] MEDS ORDERED: NALOXONE HCL 0.4 MG/ML VIAL IM PRN (16:51)
[2022-08-19] MEDS ORDERED: METHOCARBAMOL 500 MG TABLET PO PRN (16:51)
[2022-08-19] MEDS ORDERED: LOPERAMIDE HCL 2 MG CAPSULE PO PRN (16:51)
[2022-08-19] MEDS ORDERED: BISMUTH SUBSALICYLATE 524 MG/30 ML PO PRN (16:51)
[2022-08-19] MEDS ORDERED: diphenhydrAMINE HCL 25 MG CAPSULE (FP) PO PRN (16:58)
[2022-08-19] MEDS: chlordiazePOXIDE HCL 25 MG CAPSULE PO SCH ×2 (17:18→23:08)
[2022-08-19] MEDS ORDERED: MELATONIN 5 MG TABLETS PO SCH (22:00)
[2022-08-19] MEDS ORDERED: traZODone HCL 50 MG TABLET (FP) PO ONE (22:00)
[2022-08-19] MEDS: THIAMINE HCL 100 MG TABLET (FP) PO SCH (22:45)
[2022-08-20] MEDS: chlordiazePOXIDE HCL 25 MG CAPSULE PO SCH ×4 (05:42→23:10)
[2022-08-20] MEDS: PRENATAL VITAMINS W/ FOLIC ACID TABLET (FP) PO SCH (10:33)
[2022-08-20] MEDS: GABAPENTIN 300 MG CAPSULE PO SCH (22:06)
[2022-08-20] MEDS: THIAMINE HCL 100 MG TABLET (FP) PO SCH (22:06)
[2022-08-20] MEDS: traZODone HCL 50 MG TABLET (FP) PO SCH (22:06)
[2022-08-21] MEDS: chlordiazePOXIDE HCL 25 MG CAPSULE PO SCH ×5 (05:55→22:04)
[2022-08-21] MEDS: PRENATAL VITAMINS W/ FOLIC ACID TABLET (FP) PO SCH (10:26)
[2022-08-21 11:40] LABS: HEMATOCRIT 40.8 % (35.4-49); HEMOGLOBIN 13.6 GM/dL (11.7-16.9); MCH 29.4 pg (25.7-33.7); MCHC 33.3 g/dl (32.0-35.9); PLATELET COUNT 225 10^3/uL (134-434); RBC 4.64 M/mm3 (4.00-5.60); RDW 13.5 % (11.9-15.9); WHITE BLOOD COUNT 4.1 K/mm3 (4.0-10.0)
[2022-08-21 11:46] LABS: POTASSIUM 4.4 mmol/L (3.5-5.1)
[2022-08-21 12:03] LABS: BILIRUBIN,TOTAL 0.1 mg/dL (0.2-1)
[2022-08-21 12:11] LABS: BLOOD UREA NITROGEN 14.4 mg/dL (7-18)
[2022-08-21 12:12] LABS: ALBUMIN 3.9 g/dl (3.4-5.0); CALCIUM 9.4 mg/dL (8.5-10.1); CREATININE 0.9 mg/dL (0.55-1.3)
[2022-08-21 12:13] LABS: TOT PROT 6.7 g/dl (6.4-8.2)
[2022-08-21] MEDS: traZODone HCL 50 MG TABLET (FP) PO SCH (21:51)
[2022-08-21] MEDS: THIAMINE HCL 100 MG TABLET (FP) PO SCH (21:52)
[2022-08-21] MEDS: GABAPENTIN 300 MG CAPSULE PO SCH (21:52)
[2022-08-22] MEDS ORDERED: chlordiazePOXIDE HCL 10 MG CAPSULE PO PRN
[2022-08-22] MEDS: chlordiazePOXIDE HCL 10 MG CAPSULE PO SCH ×2 (05:54→06:08)
[2022-08-22 06:47] VITALS: BP 92/54; PULSE 65; RESP 16; TEMP 97.1
[2022-08-23] MEDS ORDERED: chlordiazePOXIDE HCL 10 MG CAPSULE PO SCH (05:00)
[2022-08-24] MEDS ORDERED: chlordiazePOXIDE HCL 10 MG CAPSULE PO ONE (05:00)
== END 2022-08-22 08:44 | disposition left against medical advice (07) | DRG 770 ==
LOC: YASAS 14:53 → Y3N 15:53
PROVIDERS: ADMIT Allergy & Immunology; ATTEND Surgery
PROC: HZ2ZZZZ Detoxification Services for Substance Abuse Treatment (ICD-10-PCS; principal; 2022-08-19)
DX: F10.230 Alcohol dependence with withdrawal, uncomplicated (principal); F19.282 Other psychoactive substance dependence with psychoactive substance-induced sleep disorder; F41.9 Anxiety disorder, unspecified; F32.A Depression, unspecified; F43.10 Post-traumatic stress disorder, unspecified; F51.05 Insomnia due to other mental disorder; K74.60 Unspecified cirrhosis of liver; Z87.19 Personal history of other diseases of the digestive system; Z86.19 Personal history of other infectious and parasitic diseases; Z88.0 Allergy status to penicillin; Z91.018 Allergy to other foods; Z56.0 Unemployment, unspecified; Z59.00 Homelessness unspecified
CPT/HCPCS: 36415; 80053; 85027; 86593; 86780